=== PATIENT | female | born 1985 | race Caucasian/White ===

== ENCOUNTER 2020-12-14 12:58 | Outpatient (CLI) | payer BC | END 2020-12-14 23:59 | disposition home or self-care (01) | LOC: LAB.WCP 12:58 | PROVIDERS: ATTEND Obstetrics & Gynecology | DX: H34.8122 Central retinal vein occlusion, left eye, stable (principal); Z31.69 Encounter for other general counseling and advice on procreation | CPT/HCPCS: 36415; 81241; 81599; 85598; 85610; 85613; 85670; 86147 ==

== ENCOUNTER 2021-06-11 12:21 | Outpatient (CLI) | payer OTHER | END 2021-06-11 12:22 | disposition home or self-care (01) | LOC: LAB 12:21 | PROVIDERS: ATTEND Obstetrics & Gynecology | DX: Z31.69 Encounter for other general counseling and advice on procreation (principal) | CPT/HCPCS: 81220; 81329; 81599 ==

== ENCOUNTER 2021-07-18 12:44 | Outpatient (CLI) | payer OTHER | END 2021-07-18 12:45 | disposition home or self-care (01) | LOC: LAB.N 12:44 | PROVIDERS: ATTEND Nurse Practitioner Obstetrics & Gynecology | DX: Z31.41 Encounter for fertility testing (principal) | CPT/HCPCS: 36415; 83001 ==

== ENCOUNTER 2022-10-09 07:18 | Outpatient (CLI) | payer BC | END 2022-10-09 07:19 | disposition home or self-care (01) | LOC: LAB 07:18 | PROVIDERS: ATTEND Obstetrics & Gynecology Reproductive Endocrinology | DX: Z32.01 Encounter for pregnancy test, result positive (principal) | CPT/HCPCS: 36415; 84702 ==

== ENCOUNTER 2022-12-22 09:38 | Outpatient (CLI) | payer BC ==
[2022-12-22 10:23] LABS: THYROID STIMULATING HORMONE 1.12 uIU/mL (0.34-5.60)
== END 2022-12-22 09:39 | disposition home or self-care (01) ==
LOC: LAB 09:38
PROVIDERS: ATTEND Nurse Practitioner Obstetrics & Gynecology
DX: O99.280 Endocrine, nutritional and metabolic diseases complicating pregnancy, unspecified trimester (principal)
CPT/HCPCS: 36415; 84439; 84443

== ENCOUNTER 2023-01-03 06:58 | Outpatient (CLI) | payer BC ==
[2023-01-05 21:07] LABS: AFP MOM 1.42 (.); AFP VALUE 47.1 ng/mL (.); DIA MOM 0.75 (.); DIA VALUE 97.58 pg/mL (.); DSR (BY AGE) 1 IN 140 (.); DSR (SECOND TRIMESTER) 1 IN 3823 (.); GEST. AGE ON COLLECTION DATE 17.1 WEEKS (.); GESTAT. AGE METHOD EDD (.); HCG MOM 0.81 (.); HCG VALUE 25862 mIU/mL (.); INSULIN DEP DIABETES No (.); MATERNAL AGE AT EDD 38.2 yr (.); MULTIPLE GESTATION No (.); OPEN SPINA BIFIDA RISK 1 IN 3404 (.); RACE Caucasian (.); RESULTS Report (.); TEST RESULTS *Screen Negative* (.); TRISOMY 18 RISK Not increased (.); UE3 VALUE 1.41 ng/mL (.); WEIGHT 196 lbs (.)
== END 2023-01-03 06:59 | disposition home or self-care (01) ==
LOC: LAB 06:58
PROVIDERS: ATTEND Nurse Practitioner Obstetrics & Gynecology
DX: Z13.79 Encounter for other screening for genetic and chromosomal anomalies (principal)
CPT/HCPCS: 36415; 81511

== ENCOUNTER 2023-01-23 15:38 | Outpatient (CLI) | payer BC ==
--- NOTE | 2023-01-24 11:50 | Ultrasound Report ---
PROCEDURE: OB Detailed Eval INDICATIONS: SUPERVISION OF IVF OUTSIDE/PRIOR DATING DATA: IVF on: 09/24/2022. IVF-based estimated date of delivery (NICK): 06/12/2023. The below data below was generated using the clinical NICK of 06/12/2023 TECHNIQUE: Real-time scanning was performed of the fetus, with image documentation and biometric measurements. Endovaginal scanning: Not performed COMPARISON: None. FINDINGS: General: A single living intrauterine gestation is present. Presentation: Variable Placenta: Placental position is posterior, without previa. Amniotic fluid index: 12.1 cm, within normal limits for gestational age. heart rate: 132 beats per minute. Maternal cervical canal: 4.7 cm long; normal length is 2.5 cm or more. biometrics: Biparietal diameter: 4.8 cm, 20 weeks 4 days, 73rd percentile. Head circumference: 17.9 cm, 20 weeks 3 days, 59th percentile. Abdominal circumference: 15.2 cm, 20 weeks 3 days, 50th percentile. Femur length: 3.08 cm, 19 weeks 0 days, 26 percentile. Estimated gestational age from initial scan: 20 weeks 0 days Composite gestational age from present scan: 20 weeks 2 days Estimated weight and percentile: 329.5 g, 49th percentile. Measurement variability in biometric dating: +/- 10 days from 12-20 weeks gestation, +/- 2 weeks from 20-30 weeks gestation, +/- 3 weeks at 30 weeks gestation or later. Anatomic survey: Neuro: Ventricles are normal at less than 10 mm. Cisterna magna is normal at 3-11 mm. Cerebellum i s normal in size and morphology. Nuchal skin fold: Normal at less than 6 mm between 14 and 20 weeks gestational age. Face: Nose and lips, facial profile are normal. Spine: No evidence for spina bifida. Heart: 4-chambered heart is present, with normal ventricular outflow tracts. Diaphragm: Diaphragm is intact. Stomach: Left-sided stomach is present. Kidneys: No hydronephrosis. Normal is less than 5 mm in 2nd trimester, less than 7 mm in 3rd trimester. Cord: 3 vessel cord has marginal insertion. Bladder: Normal in size. Extremities: All 4 extremities are visualized. IMPRESSION: Single living intrauterine at 20 weeks 2 days, NICK of 06/12/2023. Marginal cord insertion. Otherwise, anatomy survey is within normal limits. Estimated weight of 329.5 g, 49th percentile. Reviewed by: Bryan Lala on 01/24/2023 11:49 AM PST Approved by: Bryan Lala on 01/24/2023 11:49 AM PST Station ID: [id number]
== END 2023-01-23 15:39 | disposition home or self-care (01) ==
LOC: DI 15:38
PROVIDERS: ATTEND Nurse Practitioner Obstetrics & Gynecology
DX: O09.512 Supervision of elderly primigravida, second trimester (principal); O09.812 Supervision of pregnancy resulting from assisted reproductive technology, second trimester; Z3A.20 20 weeks gestation of pregnancy

== ENCOUNTER 2023-02-10 11:28 | Outpatient (CLI) | payer BC ==
[2023-02-10 12:14] LABS: THYROID STIMULATING HORMONE 1.33 uIU/mL (0.34-5.60)
== END 2023-02-10 11:29 | disposition home or self-care (01) ==
LOC: LAB 11:28
PROVIDERS: ATTEND Nurse Practitioner Obstetrics & Gynecology
DX: O99.280 Endocrine, nutritional and metabolic diseases complicating pregnancy, unspecified trimester (principal)
CPT/HCPCS: 36415; 84439; 84443

== ENCOUNTER 2023-03-07 09:17 | Outpatient (CLI) | payer BC ==
[2023-03-07 10:26] LABS: HCT - HEMATOCRIT 31.4 % (37.0-47.0); HGB - HEMOGLOBIN 10.6 g/dL (12.0-16.0); MEAN CORPUSCULAR HGB CONC 33.8 g/dL (32.0-36.0); MEAN CORPUSCULAR VOLUME 94.9 fL (81.0-99.0); RED BLOOD COUNT 3.31 10^6/uL (4.20-5.40)
== END 2023-03-07 09:18 | disposition home or self-care (01) ==
LOC: LAB 09:17
PROVIDERS: ATTEND Nurse Practitioner Obstetrics & Gynecology
DX: Z36.9 Encounter for antenatal screening, unspecified (principal)
CPT/HCPCS: 36415; 82950; 85027

== ENCOUNTER 2023-04-17 11:59 | Outpatient (CLI) | payer BC ==
[2023-04-17 12:41] LABS: THYROID STIMULATING HORMONE 1.26 uIU/mL (0.34-5.60)
== END 2023-04-17 12:00 | disposition home or self-care (01) ==
LOC: LAB 11:59
PROVIDERS: ATTEND Nurse Practitioner Obstetrics & Gynecology
DX: O99.280 Endocrine, nutritional and metabolic diseases complicating pregnancy, unspecified trimester (principal)
CPT/HCPCS: 36415; 84439; 84443

== ENCOUNTER 2023-04-19 17:14 | Outpatient (CLI) | payer BC ==
--- NOTE | 2023-04-20 08:56 | Ultrasound Report ---
PROCEDURE: OB Follow up INDICATIONS: MARGINAL CORD INSERTION OUTSIDE/PRIOR DATING DATA: Last menstrual period (LMP): 09/24/2022. LMP-based estimated date of delivery (NICK): 06/12/2023. First dating scan (date and location): 10/19/2022 outside clinic. Estimated date of delivery (NICK) from first dating scan: 06/11/2023. The below data below was generated using the working NICK of 06/12/2023 TECHNIQUE: Real-time scanning was performed of the fetus, with image documentation and biometric measurements. Endovaginal scanning: Not performed. COMPARISON: 01/23/2023 FINDINGS: General: A single living intrauterine gestation is present. Presentation: Vertex Placenta: Placental position is posterior, without previa. Amniotic fluid index: 18.5 cm, within normal limits for gestational age. heart rate: 133 beats per minute. Maternal cervical canal: 4.11 cm long; normal length is 2.5 cm or more. biometrics: Biparietal diameter: 8.57 cm, 34 weeks, 4 days, 94.1% Head circumference: 31.71 cm, 35 weeks, 5 days, 91.9% Abdominal circumference: 28.19 cm, 32 weeks, 2 days, 47.4% Femur length: 6.1 cm, 31 weeks, 5 days, 22.8% Estimated gestational age from initial scan: 32 weeks, 2 days Composite gestational age from present scan: 33 weeks, 4 days Estimated weight and percentile: 2011.2 g, 49.9% Measurement variability in biometric dating: +/- 10 days from 12-20 weeks gestation, +/- 2 weeks from 20-30 weeks gestation, +/- 3 weeks at 30 weeks gestation or more. Other: Marginal placental cord insertion approximately 1.7 cm from inferior and placenta is seen. Non specific vascular flow is noted near the inferior tip of placenta unable to be clearly defined due to position. IMPRESSION: 1. Single live intrauterine gestation with fetus in vertex presentation. heart rate is 133 bpm. Normal amount of amniotic fluid. Estimated weight is at 49.9%. 2. Marginal placental cord insertion as above. Nonspecific vascular flow noted near the inferior tip of placenta and is of indeterminant significance. Reviewed by: Girma De Guzman MD on 04/20/2023 8:54 AM PST Approved by: Girma De Guzman MD on 04/20/2023 8:54 AM [facility] Station ID: [id number]
== END 2023-04-19 17:15 | disposition home or self-care (01) ==
LOC: DI 17:14
PROVIDERS: ATTEND Nurse Practitioner Obstetrics & Gynecology
DX: O09.513 Supervision of elderly primigravida, third trimester (principal); O09.813 Supervision of pregnancy resulting from assisted reproductive technology, third trimester; O43.193 Other malformation of placenta, third trimester; Z3A.33 33 weeks gestation of pregnancy

== ENCOUNTER 2023-06-05 15:50 | Outpatient (CLI) | payer BC ==
[2023-06-05] MEDS: miSOPROStoL 100 MCG TABLET BC SCH (16:35)
[2023-06-05 17:54] LABS: BASOPHILS % (AUTO) 0.3 %; EOSINOPHILS # (AUTO) 0.1 10^3/uL (0.0-0.7); EOSINOPHILS % (AUTO) 0.7 %; HCT - HEMATOCRIT 30.8 % (37.0-47.0); HGB - HEMOGLOBIN 10.6 g/dL (12.0-16.0); LYMPHOCYTES # (AUTO) 1.9 10^3/uL (1.5-3.5); MEAN CORPUSCULAR HEMOGLOBIN 32.2 pg (27.0-31.0); MEAN CORPUSCULAR HGB CONC 34.4 g/dL (32.0-36.0); MEAN CORPUSCULAR VOLUME 93.6 fL (81.0-99.0); MEAN PLATELET VOLUME 10.9 fL (7.9-10.8); MONOCYTES # (AUTO) 0.4 10^3/uL (0.0-1.0); MONOCYTES % (AUTO) 5.5 %; NEUTROPHILS # (AUTO) 4.4 10^3/uL (1.5-6.6); NEUTROPHILS % (AUTO) 64.9 %; PLT - PLATELET COUNT 195 10^3/uL (130-450); RED BLOOD COUNT 3.29 10^6/uL (4.20-5.40); RED CELL DISTRIBUTION WIDTH 13.1 % (12.0-15.0); WHITE BLOOD COUNT 6.8 x10^3/uL (4.8-10.8)
[2023-06-05 23:25] VITALS: BP 115/74
--- NOTE | 2023-06-06 09:16 | PROVIDER PROGRESS NOTE ---
- HPI Chief Complaint: Other Current : Vital Signs Temperature 36.7 C 06/05/23 19:30 Heart Rate 77 06/05/23 19:30 Respiratory Rate 20 06/05/23 19:30 Blood Pressure 115/74 06/05/23 19:30 Temperature 36.7 C 06/05/23 19:30 Heart Rate 77 06/05/23 19:30 Respiratory Rate 20 06/05/23 19:30 Blood Pressure 115/74 06/05/23 19:30 O2 Saturation If not protocol: Oxygen Flow, liters/minute - Plan Plan: Nalini is a 38yo @ 39.1wks gestation by IVF transfer date who presents to [facility] for outpatient cervical ripening in anticipation for medical induction of labor tomorrow morning secondary to IVF and advanced maternal age. She denies vaginal bleeding, leakage of fluid or contractions. She reports +FM. IV inserted. CBC collected. SVE 04/17/-3, posterior, medium. vertex. Intact membranes 25mcg BC misoprostol x once administered. Shetty cervical ripening balloon inserted and inflated to 60cc intrauterine and 60cc vaginal balloon. Pt tolerated insertion well. Extended EFM Category I with heart rate 140s, moderate variability, + accels, no decels. Contractions palpate mild intermittently with soft resting tone. Pt released home with precautions following 4 hours of EFM after misoprostol dosage. Pt has emergency contact information. Plan to return at 0800 tomorrow or sooner PRN. Pt verbalized understanding and agrees to above plan. She denies further questions or concerns at this time.
== END 2023-06-05 20:05 | disposition home or self-care (01) ==
LOC: WFO 15:50 → FBP 15:51 → WFO 20:05
PROVIDERS: ATTEND Nurse Practitioner Obstetrics & Gynecology
DX: O09.813 Supervision of pregnancy resulting from assisted reproductive technology, third trimester (principal); Z3A.39 39 weeks gestation of pregnancy
CPT/HCPCS: 59200; 85025; A9270

== ENCOUNTER 2023-06-06 07:55 | Inpatient (IN) | payer BC ==
[2023-06-06] MEDS ORDERED: lidocaine 1% 20 ML MDV ID PRN (08:28)
[2023-06-06] MEDS ORDERED: miSOPROStoL 200 MCG TABLET BC PRN (08:28)
[2023-06-06] MEDS ORDERED: TRANEXAMIC ACID IN NACL 1,000 MG/100 ML BAG IV PRN (08:28)
[2023-06-06] MEDS ORDERED: OXYTOCIN 10 UNIT/ML VIAL IM PRN (08:28)
[2023-06-06] MEDS ORDERED: SODIUM CHLORIDE FLUSH 0.9% 10 ML SYRINGE IVP PRN (08:28)
[2023-06-06] MEDS ORDERED: METHYLERGONOVINE 0.2 MG/ML VIAL IM PRN (08:28)
[2023-06-06] MEDS ORDERED: CARBOPROST TROMETHAMINE 250 MCG/ML VIAL IM PRN (08:28)
[2023-06-06] MEDS ORDERED: OXYTOCIN/SODIUM CHLORIDE 500 ML IV PRN (08:28)
--- NOTE | 2023-06-06 08:32 | HISTORY & PHYSICAL EXAMINATION ---
Admit History - Visit Reason Visit Reason: Other - : 1 Parity: 0 Premature: 0 Ectopic: 0 : 1 Care: positive: [facility] Risk/History: positive: None Complications This : positive: Other Smoking Status: Never smoker - Mother's Labs Mother's Blood Type: positive: A Mother's RH: positive: Positive GBS: positive: Group B Strep Positive Rubella Status: positive: Immune - HPI Diagnosis/Indication for NST: Other - NST Procedure FHR baseline 140s, moderate variability, + accels, no decels Contractions palpate mild occasionally with soft resting tone Meds/Allgy - Allergies Allergies/Adverse Reactions: Allergies Allergy/AdvReac Type Severity Reaction Status Date / Time No Known Drug Allergies Allergy Verified 06/06/23 08:32 Review of Systems - Constitutional Constitutional: denies: Fatigue, Fever, Chills - Eyes Eyes: denies: Blurred vision, Spots in vision, Dipolpia - Cardiovascular Cariovascular: denies: Chest pain, Edema - Respiratory Respiratory: denies: Cough, Wheezing, SOB at rest - Gastrointestinal Gastrointestinal: denies: Constipation, Diarrhea, Nausea, Vomiting - Genitourinary Genitourinary: denies: Dysuria, Frequency, Flank pain - Integumentary Integumentary: denies: Rash, Pruritis - Neurological Neurological: denies: Headache - Psychiatric Psychiatric: denies: Depression, Anxiety - Hematologic/Lymphatic Hematologic/Lymphatic: denies: Anemia, Bruising - All Other Systems All Other Systems: reports: Reviewed and negative Physical - Abdominal Exam Contraction Frequency (min/apart): occasional Contraction Intensity: positive: Mild Uterine Resting Tone: positive: Soft - Monitoring Heart Rate Baseline: 140 Strip Review: positive: Category I - Presentation Presentation: positive: Vertex - Vaginal Exam Membranes: positive: Membranes intact Dilation (in cm): 3 Effacement (%): 50 Station: positive: -3 Cervical Position: positive: Posterior - Speculum Exam Speculum Exam Performed: positive: No Plan for Labor - Plan For Labor I expect patient to be DC'd or transferred within 96 hours.: Yes Plan for Labor: Nalini is a 38yo @ 38yo @ 39.1wks gestation who presents today to [facility] for medical induction of labor secondary to IVF and advanced maternal age. She had a cervical ripening balloon and 25mcg BC misoprostol administered yesterday outpatient. She reports she was able to get some sleep last night but overall has felt rather uncomfortable. Upon arrival cervical ripening balloon was removed and SVE revealed cervix was 3/50/-3, posterior, soft and vertex with intact membranes. FHR baseline 140s, moderate variability, + accels, no decels. Contractions palpate mild occasionally with soft resting tone. [facility] the duration of her which has remained uncomplicated with the exception of advanced maternal age and IVF . testing was initiated at 36 weeks gestation and has remained reassuring. She did also start levothyroxine 25mcg prior to IVF transfer date and her thyroid levels have been monitored and have remained within normal limits through the duration of her . She is noted to be GBS positive and will receive GBS prophylaxis per protocol with SROM or active labor. She is supported by her Tremayne today. Dating criteria: LMP: 09/08/2022 IVF transfer date NICK: 06/12/2023 Serial exams: - agree supervisor lump room History: Term NSVB x 0. SAB x 1. Last pap 2021 ASCUS, neg HPV. She had a colposcopy in 2021 which was WNL. She will need a repeat pap . Denies history of gonorrhea, chlamydia, genital herpes, oral herpes or any other STI. Sexual partner does NOT have HSV (oral or genital). Medical Hx: Infertility Surgical Hx: none Social Hx: Monogamous with male partner. Stopped drinking alcohol due to . Denies current use of tobacco, marijuana or other recreational drugs. Reports that she is safe in current relationship. 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 Family Hx: Denies family history of congenital anomalies, Cystic Fibrosis or chromosomal abnormalities. Allergies: NKDA Medications: PNV, Levothyroxine 25mcg once daily, FeSO4 bid course: A positive, antibody negative Rubella immune, varicella immune HIV non-reactive, RPR non-reactive Hep B neg, Hep C neg Genetic screening - neg Carrier screening - negative CF, SMA, Fragile X FAS WNL. Posterior placenta, no previa. Size c/w dating (EFW 49%tile). LETICIA WNL. 3VC with marginal cord insertion. Glucola 100 Tdap 03/23/2023 Influenza 12/15/2022 COVID vaccine x 4 Growth and LETICIA ultrasound at 32wks secondary to marginal cord insertion WNL. EFW 49.9%tile. GBS POSITIVE Physical exam: Normocephalic, atraumatic Heart RRR w/o M/G/R Lungs CTAB Abdomen gravid, soft, nontender EFW 3500g FHR baseline 140s, moderate variability, + accels, no decels Contractions palpate mild occasionally with soft resting tone SVE 3/50/-3, posterior, soft. Vertex. Intact membranes. Bilateral LE's trace edema. Mood is good. Assessment: 38yo @ 39.1wks gestation by IVF transfer date IVF Advanced maternal age FHR Category I GBS positive Plan: 50mcg BC misoprosotol q 4 hrs for pre-induction cervical ripening. Continuous monitoring. Initiate Ampicillin for GBS prophylaxis per protocol with SROM or active labor. Jaccuzi PRN. Nitrous oxide PRN. Epidural per maternal request. Anticipate .
[2023-06-06] MEDS ORDERED: LEVOTHYROXINE 25 MCG TABLET PO SCH (09:00)
[2023-06-06] MEDS: miSOPROStoL 100 MCG TABLET BC SCH (09:01)
--- NOTE | 2023-06-06 09:12 | PROVIDER PROGRESS NOTE ---
- HPI Chief Complaint: Other Current : Current EDU 06/12/23 Gestation 39 Weeks and 1 Days 2 Vital Signs Temperature 36.7 C 06/06/23 08:39 Heart Rate 65 06/06/23 08:39 Respiratory Rate 16 06/06/23 08:39 Blood Pressure 128/75 06/06/23 08:39 Temperature 36.7 C 06/06/23 08:39 Heart Rate 65 06/06/23 08:39 Respiratory Rate 16 06/06/23 08:39 Blood Pressure 128/75 06/06/23 08:39 O2 Saturation If not protocol: Oxygen Flow, liters/minute - Exam Nalini is a 38yo @ 39.1wks gestation by IVF transfer date who presents to [facility] for outpatient cervical ripening in anticipation for medical induction of labor tomorrow morning secondary to IVF and advanced maternal age. She denies vaginal bleeding, leakage of fluid or contractions. She reports +FM. IV inserted. CBC collected. SVE 04/17/-3, posterior, medium. vertex. Intact membranes 25mcg BC misoprostol x once administered. Shetty cervical ripening balloon inserted and inflated to 60cc intrauterine and 60cc vaginal balloon. Pt tolerated insertion well. Extended EFM Category I with heart rate 140s, moderate variability, + accels, no decels. Contractions palpate mild intermittently with soft resting tone. Pt released home with precautions following 4 hours of EFM after misoprostol dosage. Pt has emergency contact information. Plan to return at 0800 tomorrow or sooner PRN. Pt verbalized understanding and agrees to above plan. She denies further questions or concerns at this time.
[2023-06-06] MEDS: SODIUM CHLORIDE FLUSH 0.9% 10 ML SYRINGE IVP SCH (09:50)
--- NOTE | 2023-06-06 16:07 | PHARMACY PROGRESS NOTE ---
- Best Possible Medication History Admit Date and Time: 06/06/23 0828 Processed by: Pharmacy Medications reviewed in ED?: No Medication History completed: Yes Patient Interview: Completed Secondary Source(s): Physician records, Insurance records As the person ultimately responsible for medication therapy, providers are able to order a medication from an existing home medication list in [facility] via the "Reconcile Routine" prior to Confirmation of that medication by support director. Such practice is discouraged except when the physician, in their clinical judgment, deems that a medical need exists for a medication without regard to previous use.
[2023-06-06] MEDS: LACTATED RINGERS 1,000 ML IV SCH (16:12)
[2023-06-06] MEDS ORDERED: AMPICILLIN 2 GM in SODIUM CHLORIDE 0.9% MINIBAG 100 ML IV ONE (17:45)
[2023-06-06] MEDS: OXYTOCIN/SODIUM CHLORIDE 500 ML IV SCH (17:50)
--- NOTE | 2023-06-06 17:50 | PROVIDER PROGRESS NOTE ---
Labor Progress Note - Uterine Monitoring Uterine Monitoring Mode: positive: External toco Contraction Frequency (min/apart): 2-5 Contraction Intensity: positive: Mild Uterine Resting Tone: positive: Soft - Monitoring Monitor Mode: positive: External ultrasound Heart Rate Baseline: 140 Heart Rate Variability: positive: Moderate (6-25 bmp) Accelerations: positive: Present, 15x15 Decelerations: positive: None Strip Review: positive: Category I - Vaginal Exam Dilation (in cm): 4-5 Effacement (%): 100 Station: -3 Cervical Position: Posterior - Labor Progress Note Labor Progress Note/Additional Text: S: Feeling some cramping with contractions but felt the contractions she was experiencing with the cervical ripening balloon in place were more uncomfortable. She was able to get a little rest today. Her Tremayne remains supportive at the bedside. She is supportive of moving labor progress forward. O: FHR baseline 140s, moderate variability, + accels, no decels are present. Previously had variable decelerations which resolved with position change and IV fluid bolus. Overal FHR has remained reassuring Contractions palpate mild every 2-4 minutes with soft resting tone SVE 4-5/100/-3, soft, posterior. Vertex. Membranes intact. A: 38yo @ 39.1wks gestation by IVF transfer date IVF Advanced maternal age GBS positive FHR Category I P: Initiate pitocin for induction of labor with titration per protocol. Initiate ampicillin for GBS prophylaxis per protocol. Continuous monitoring. Jacuzzi PRN. Nitrous oxide PRN. Epidural per maternal request. Anticipate .
[2023-06-06] MEDS: AMPICILLIN 2 GM in SODIUM CHLORIDE 0.9% MINIBAG 100 ML IV ONE (17:54)
[2023-06-06] MEDS: LEVOTHYROXINE 25 MCG TABLET PO SCH (20:05)
[2023-06-06] MEDS ORDERED: LIDOCAINE 2%-EPI 1:100000 20 ML MDV ONE (20:54)
[2023-06-06] MEDS ORDERED: ROPIVACAINE 0.2% 200 MG/100 ML BAG EP ONE (20:54)
[2023-06-06] MEDS: ONDANSETRON 4 MG/2 ML VIAL IVP PRN (21:06)
--- NOTE | 2023-06-06 21:36 | ANESTHESIA ---
Pre-Anesthesia VS, & Labs - Diagnosis Active labor - Procedure Active labor Vital Signs: Temp Pulse Resp BP Pulse Ox O2 Flow Rate 36.7 C 65 16 128/75 06/06/23 08:39 06/06/23 08:39 06/06/23 08:39 06/06/23 08:39 Height: 5 ft 5 in Weight (kg): 97.522 kg Body Mass Index: 35.7 BMI Classification: Obese - NPO Last Fluid Intake: clear liquids - Is Patient ?: Yes - Lab Results Current Lab Results: Laboratory Tests 06/06/23 08:40: Blood Type A POSITIVE, Antibody Screen NEGATIVE 06/05/23 16:30: Blood Type Recheck A POSITIVE Lab results reviewed: Yes Home Medications and Allergies Home Medications: Ambulatory Orders Ferrous Sulfate [Feosol] 325 mg PO BID 06/06/23 Levothyroxine [Synthroid] 25 mcg PO DAILY 06/06/23 Pnv No.95/Ferrous Fum/Folic AC [ Tablet] 1 tab PO DAILY 06/06/23 Active Medications Carboprost Tromethamine (Carboprost Tromethamine 250 Mcg/Ml Vial) 250 mcg IM Q15M PRN PRN Reason: Step 4: Hemorrhage protocol Oxytocin/Sodium Chloride (Pitocin/Sodium Chloride) 500 mls @ 999 mls/hr IV PRN PRN; Protocol PRN Reason: POST- HEMORR PREVENTION Stop: 06/11/23 08:29 Tranexamic Acid (Tranexamic 1,000 Mg/100ml-Nacl) 1,000 mg in 100 mls @ 600 mls/hr IV .ONCE PRN PRN Reason: EBL >1200mL and within 3hr Stop: 06/11/23 08:29 Ampicillin Sodium 1 gm/ Sodium (Chloride) 100 mls @ 200 mls/hr IV Q4H [facility] Lactated Ringer's (Lr) 1,000 mls @ 100 mls/hr IV .Q10H [facility] Last Admin: 06/06/23 19:08 Dose: 100 mls/hr Oxytocin/Sodium Chloride (Pitocin/Sodium Chloride) 500 mls @ 2 mls/hr IV TITR [facility]; Protocol Last Titration: 06/06/23 20:00 Dose: 4 milliunit/min, 4 mls/hr Levothyroxine Sodium (Levothyroxine 25 Mcg Tablet) 25 mcg PO HS [facility] Last Admin: 06/06/23 20:05 Dose: 25 mcg Lidocaine HCl (Lidocaine 1% 20 Ml Mdv) 20 ml ID .ONCE PRN PRN Reason: PERINEAL REPAIR Stop: 06/11/23 08:29 Methylergonovine Maleate (Methylergonovine 0.2 Mg/Ml Vial) 0.2 mg IM .ONCE PRN PRN Reason: Step 2: Hemorrhage protocol Stop: 06/11/23 08:29 Misoprostol (Misoprostol 200 Mcg Tablet) 800 mcg BC .ONCE PRN PRN Reason: Step 3: Hemorrhage protocol Stop: 06/11/23 08:29 Misoprostol (Misoprostol 100 Mcg Tablet) 50 mcg BC Q4H [facility] Last Admin: 06/06/23 13:07 Dose: 50 mcg Ondansetron HCl (Ondansetron 4 Mg/2 Ml Vial) 4 mg IVP Q4HR PRN PRN Reason: Nausea / Vomiting Last Admin: 06/06/23 21:06 Dose: 4 mg Oxytocin (Oxytocin 10 Unit/Ml Vial) 10 unit IM .ONCE PRN PRN Reason: Step one: If no IV access Stop: 06/11/23 08:29 Sodium Chloride (Sodium Chloride Flush 0.9% 10 Ml Syringe) 10 ml IVP 0100,0900,1700 [facility] Last Admin: 06/06/23 21:06 Dose: 10 ml Sodium Chloride (Sodium Chloride Flush 0.9% 10 Ml Syringe) 10 ml IVP PRN PRN PRN Reason: NEEDED PER PROVIDER ORDERS Ferrous Sulfate [Feosol] 325 mg PO BID 06/06/23 Levothyroxine [Synthroid] 25 mcg PO DAILY 06/06/23 Pnv No.95/Ferrous Fum/Folic AC [ Tablet] 1 tab PO DAILY 06/06/23 Allergies/Adverse Reactions: Allergies Allergy/AdvReac Type Severity Reaction Status Date / Time No Known Drug Allergies Allergy Verified 06/06/23 08:32 Anes History & Medical History - Anesthetic History Anesthesia Complications: reports: No previous complications - Medical History Cardiovascular: reports: None Pulmonary: reports: None Gastrointestinal: reports: None Urinary: reports: None Neuro: reports: None Musculoskeletal: reports: None Endocrine/Autoimmune: reports: HyPOthyroidism (during ) Blood Disorders: reports: None Skin: reports: None Smoking Status: Never smoker Psychosocial: reports: No issues indicated History of Cancer?: No - Surgical History Other Past Surgical History: IVF - Obstetrical History : 1 Parity: 0 Events: reports: None Complications: reports: Other (AMA, IVF ) Exam General: Alert, Oriented x3, Cooperative, No acute distress Dental: WNL Mouth Openin Fingerbreadth Neck Mobility: Normal Mallampati classification: II Thyromental Distance: 4-6 cm Mental/Cognitive Status: Alert/Oriented X3, Normal for patient Plan Anesthesia Type: Epidural Consent for Procedure(s) Verified and Reviewed: Yes Code Status: Attempt Resuscitation ASA classification: 2-Mild systemic disease Is this case an emergency?: No
[2023-06-06] MEDS ORDERED: NALOXONE 0.4 MG/ML VIAL IVP PRN (21:37)
[2023-06-06] MEDS: ePHEDrine 50 MG/ML VIAL IVP PRN (22:28)
[2023-06-06] MEDS: AMPICILLIN 1 GM in SODIUM CHLORIDE 0.9% MINIBAG 100 ML IV SCH (23:02)
[2023-06-06] MEDS ORDERED: ePHEDrine 50 MG/ML VIAL IVP PRN (23:37)
[2023-06-07] MEDS ORDERED: ROPIVACAINE 0.2% PF 20 ML AMPULE ONE ×2 (04:53→09:11)
[2023-06-07] MEDS ORDERED: SODIUM CHLORIDE 0.9% 10 ML VIAL IVP ONE ×4 (05:02→18:21)
[2023-06-07] MEDS: ROPIVACAINE 0.2% 200 MG/100 ML BAG EP PRN (06:07)
[2023-06-07] MEDS ORDERED: LIDOCAINE-PF 2% 10 ML AMP SUBQ ONE ×3 (06:12→14:05)
[2023-06-07] MEDS ORDERED: fentaNYL 100 MCG/2 ML VIAL ONE (06:12)
[2023-06-07] MEDS ORDERED: diphenhydrAMINE INJ 50 MG/ML VIAL ONE (08:37)
[2023-06-07] MEDS: diphenhydrAMINE INJ 50 MG/ML VIAL IVP PRN ×2 (08:46→23:26)
[2023-06-07] MEDS ORDERED: LIDOCAINE-MPF 2% 5 ML VIAL ONE ×3 (09:24→18:21)
--- NOTE | 2023-06-07 09:45 | PROVIDER PROGRESS NOTE ---
Labor Progress Note - Uterine Monitoring Uterine Monitoring Mode: positive: External toco Contraction Frequency (min/apart): 2-3 Contraction Intensity: positive: Strong Uterine Resting Tone: positive: Soft - Monitoring Monitor Mode: positive: External ultrasound Heart Rate Baseline: 145 Heart Rate Variability: positive: Moderate (6-25 bmp) Accelerations: positive: Present, 15x15 Decelerations: positive: Variable, Intermittent (<50% x20 min) Strip Review: positive: Category II - Vaginal Exam Dilation (in cm): 5-6 Station: 0 - Labor Progress Note Labor Progress Note/Additional Text: S: Upon my arrival to the unit pt is crying in pain and frustration secondary to her epidural not being effective. She has struggled with pain control all night and anesthesia has been at the bedside on multiple occasions to bolus her epidural. She has intermittently been able to get comfortable but the comfort is usually brief. Anesthesia has been called to present to the bedside to evaluate again. Her Tremayne remains supportive at the bedside. O: FHR baseline 140s, moderate variability, + accels, 1 variable deceleration. Overall reassuring. Contractions palpate strong every 2-3 minutes with soft resting tone SVE deferred at this time. Last SVE at 0820 was 5-6/ and edema noted. 25mg IV benadryl administered Pitocin @ 13mU/mL A: 38yo @ 39.2wks gestation by IVF transfer date Active labor IVF GBS positive FHR Category II at present - overall reassuring has has remained category II overall P: Continue pitocin for induction of labor with titration per protocol. Continue ampicillin for GBS prophylaxis per protocol. Maintain epidural for pain management. Continuous monitoring. Rotate in bed on peanut ball while also promoting rest. Repeat SVE in 2 hours and consider IUPC if no cervical change at that time. Anticipate .
--- NOTE | 2023-06-07 10:16 | PROVIDER PROGRESS NOTE ---
Labor Progress Note - Uterine Monitoring Uterine Monitoring Mode: positive: External toco Contraction Frequency (min/apart): 3-5 Contraction Intensity: positive: Moderate Uterine Resting Tone: positive: Soft - Monitoring Monitor Mode: positive: External ultrasound Heart Rate Baseline: 140 Heart Rate Variability: positive: Moderate (6-25 bmp) Accelerations: positive: Present, 15x15 Decelerations: positive: None Strip Review: positive: Category I - Vaginal Exam Dilation (in cm): 4-5 Effacement (%): 100 Station: -2 Cervical Position: Posterior - Labor Progress Note Labor Progress Note/Additional Text: S: Feeling more discomfort with contractions but continues to feel the contract ions she was experiencing with the cervical ripening balloon in place were more uncomfortable. She is currently sitting on the labor ball at the bedside. In agreement with releasing her bag of water. She feels like she is getting close to desring an epidural for pain management. Tremayne is supportive at the bedside. O: FHR baseline 140s, moderate variability, + accels, no decels are present. Contractions palpate moderate every 3-4 minutes with soft resting tone SVE 4-5/100/-2, soft, posterior. Vertex. AROM at 2042 was noted to be a moderate amount of clear fluid. A: 38yo @ 39.1wks gestation by IVF transfer date IVF Advanced maternal age GBS positive FHR Category I P: Anesthesia notified for placement of epidural per maternal request. Continue pitocin for induction of labor with titration per protocol. Continue ampicillin for GBS prophylaxis per protocol. Continuous monitoring. Jacuzzi PRN. Nitrous oxide PRN. Epidural per maternal request. Anticipate .
--- NOTE | 2023-06-07 10:20 | PROVIDER PROGRESS NOTE ---
Labor Progress Note - Uterine Monitoring Uterine Monitoring Mode: positive: External toco Contraction Frequency (min/apart): 2-4 Contraction Intensity: positive: Moderate Uterine Resting Tone: positive: Soft - Monitoring Monitor Mode: positive: External ultrasound Heart Rate Baseline: 150 - Vaginal Exam Dilation (in cm): 4-5 Effacement (%): 100 Station: -2 Cervical Position: Posterior - Labor Progress Note Labor Progress Note/Additional Text: I was phones by RN to review strip secondary to abnormal heart rate pattern following epidural bolus from pump and subsequent hypotention that resulted in heart rate pattern that appears tachycardic and abnormal pattern. Immediately prior to hypotensive episode the FHR pattern was category I with + accels. Consult with public relations consultant physician who visualized heart rate tracing and agrees that it looks overall reassuring. heart rate pattern improves and becomes more regular. No longer concerned at this time.
[2023-06-07] MEDS: ACETAMINOPHEN 1,000 MG/100 ML 1,000 MG/100 ML BAG IV ONE ×2 (11:55→18:13)
[2023-06-07] MEDS ORDERED: BUPIVACAINE 0.25% PF 10 ML VIAL ONE (20:27)
[2023-06-08] MEDS: ACETAMINOPHEN 1,000 MG/100 ML 1,000 MG/100 ML BAG IV PRN (00:43)
[2023-06-08] MEDS: CALCIUM CARBONATE CHEW 500 MG TABLET PO SCH (01:32)
--- NOTE | 2023-06-08 01:34 | PROVIDER PROGRESS NOTE ---
Labor Progress Note - Uterine Monitoring Uterine Monitoring Mode: positive: IUPC Contraction Frequency (min/apart): 6-8 Contraction Intensity: positive: Moderate to strong Uterine Resting Tone: positive: Soft - Monitoring Monitor Mode: positive: External ultrasound Heart Rate Baseline: 150 Heart Rate Variability: positive: Moderate (6-25 bmp) Accelerations: positive: Present, 15x15 Decelerations: positive: None Strip Review: positive: Category I - Vaginal Exam Dilation (in cm): 8 Effacement (%): 100 Station: 0 - Labor Progress Note Labor Progress Note/Additional Text: S: Patient is comfortable with her epidural in place. She has continued to require intermittent boluses from anesthesia and continues to experience lower back/flank pain that is intermittently relieved by tylenol. She has been rotating in bed on peanut ball. Her and sister are supportive at the bedside. O: FHR 150s, moderate variability, + accels, no decels Contractions palpate strong every 6-8 minutes. Patient did have IUPC in place and it was spontaneously expelled and replaced now. Contractions did not reach an adequate MVU rate. SVE 8/100/0 and vertex. Persistent cervical edema noted AROM x 29hrs A: 38yo @ 39.3wks gestation by IVF transfer date Active labor Slow progression of labor Prolonged rupture of membranes IVF Advanced maternal age GBS positive FHR Category I P: Shut off pitocin x 60 minutes and administer TUMS for pitocin break followed by reinitiation of pitocin in 60 minutes with titration per protocol. 50mg benadryl IV in 1.5hrs to decrease cervical inflammation Type and crossmatch x 2 units secondary to increased risk of hemorrhage due to prolonged rupture of membranes and prolonged active phase of labor. Continuous monitoring. Trundelenburg position during benadryl administration. Continue rotation in bed on peanut ball. Maintain epidural for pain management.
--- NOTE | 2023-06-08 01:44 | PROVIDER PROGRESS NOTE ---
Labor Progress Note - Uterine Monitoring Uterine Monitoring Mode: positive: IUPC Contraction Frequency (min/apart): 3-5 Contraction Intensity: positive: Moderate to strong Uterine Resting Tone: positive: Soft - Monitoring Monitor Mode: positive: External ultrasound Heart Rate Baseline: 140 Heart Rate Variability: positive: Moderate (6-25 bmp) Accelerations: positive: Present, 15x15 Decelerations: positive: None Strip Review: positive: Category I - Vaginal Exam Dilation (in cm): 8 Effacement (%): 100 Station: 0 - Labor Progress Note Labor Progress Note/Additional Text: S: Patient currently comfortable with epidural. Anesthesia present at the bedside on multiple occasions in attempt to get her comfortable secondary to persistent flank pain. Tremayne remains supportive at the bedside. O: FHR baseline 140s, moderate variability, + accels, no decels SVE 8/100/0, vertex. AROM x 22hrs IUPC placed A: 38yo @ 39.2wks gestation by IVF transfer date Active labor Prolonged active phase of labor GBS positive FHR Category I IVF Advanced maternal age P: Continuous monitoring. Continue titration of pitocin per protocol for induction of labor. Continue ampicillin for GBS prophylaxis per protocol. Maintain epidural for pain management. Continue tylenol 1000mg q 6hrs PRN lower back pain. Continue benadryl 25mg IV q 2 hrs PRN cervical edema. Encouraged rotation in bed on peanut ball. Anticipate .
[2023-06-08] MEDS: diphenhydrAMINE INJ 50 MG/ML VIAL IVP PRN (02:38)
[2023-06-08] MEDS ORDERED: LIDOCAINE-PF 2% 10 ML AMP SUBQ ONE (05:35)
[2023-06-08] MEDS ORDERED: SODIUM CHLORIDE 0.9% 10 ML VIAL IVP ONE (05:35)
[2023-06-08] MEDS ORDERED: fentaNYL 100 MCG/2 ML VIAL ONE (05:36)
--- NOTE | 2023-06-08 09:53 | PROVIDER PROGRESS NOTE ---
Labor Progress Note - Uterine Monitoring Uterine Monitoring Mode: positive: IUPC Contraction Frequency (min/apart): 2-3 Contraction Intensity: positive: Moderate Uterine Resting Tone: positive: Soft - Monitoring Monitor Mode: positive: External ultrasound Heart Rate Baseline: 150 Heart Rate Variability: positive: Moderate (6-25 bmp) Accelerations: positive: Present, 15x15 Decelerations: positive: None Strip Review: positive: Category I - Vaginal Exam Dilation (in cm): 8 Station: 0 - Labor Progress Note Labor Progress Note/Additional Text: Patient has continued to rotate in bed on peanut ball all night with ability to sleep intermittently. This morning we reviewed my continued concern for increased risk of hemorrhage and infection secondary to prolonged rupture of membranes, prolonged pitocin induction of labor, prolonged active phase of labor, and failure to progress. She desires to proceed with increasing pitocin for induction of labor and titration to adequate contractions despite increased risk associated.
[2023-06-08] MEDS ORDERED: WITCH HAZEL/GLYCERIN 1 PAD TOP PRN (13:30)
[2023-06-08] MEDS ORDERED: HYDROCORTISONE 1% CREAM 28 GM TUBE PR PRN (13:30)
--- NOTE | 2023-06-08 14:06 | DELIVERY NOTE ---
Delivery Note - Labor Labor: positive: Augmented by ARM, Induced by oxytocin - Delivery Method Infant Delivery Method: positive: Spontaneous vaginal delivery - Cervical Ripening Method Cervical Ripening Method: positive: Balloon device, Misoprostil - Presentation Presentation: positive: Vertex - Nuchal Cord Nuchal Cord: positive: Present - Amniotic Fluid Description Amniotic Fluid Description: positive: Clear - Episiotomy Type Episiotomy Type: positive: None - Laceration Laceration: positive: 1st degree, Vaginal - Suture Suture Type: positive: Vicryl Suture Size: positive: 2-0 - Delivery Outcome Delivery Outcome: positive: Livebirth - [place]: positive: Placed in direct skin contact with mother, Suctioned, Bulb syringe, Stimulated, Warmed, [place] used, Warmer used sex: positive: Male - Cord Cord: positive: 3 vessels, Other - Placenta Placenta: positive: Intact, Spontaneous - Estimated Blood Loss Estimated Blood Loss (in cc): 562 (QBL) - Post Delivery Events Post Delivery Events: positive: No post delivery events - Delivery Comments (Free Text/Narrative) Delivery Comments (Free Text/Narrative): Labor: This 38yo @ 39.3wks gestation by LMP c/w IVF transfer date presented on 06/06/2023 for medical induction of labor secondary to IVF and advanced maternal age. She had a cervical ripening balloon placed and 25 mcg BC misoprostol administered followed by 4 hours of electronic monitoring outpatient on 06/05/2023. Upon her arrival for inpatient induction of labor 06/06/2023 her cervix was 3/50/-3, posterior and vertex with intact membranes. She received an additional 2 doses of 50 mcg BC misoprostol for pre- induction cervical ripening followed by initiation of pitocin for induction of labor with titration per protocol. Pitocin was at a maximum infusion rate of 24mU/mL. FHR pattern demonstrated Category I pattern throughout labor. She had occasional periods of Category II but overall FHR pattern remained reassuring through the duration of her labor course. Epidural was placed per maternal request. AROM occurred on 06/06/2023 @ 2043 and was noted to be a moderate amount of clear fluid. IUPC was inserted on 06/07/2023 @ 1830. Pt progressed to anterior lip and pushing on 06/08/2023 @ 1102. She progressed to c/c/+1 @ 1124. at home independent call center agent physician notified of onset of pushing and presence requested on the unit in event of hemorrhage or uterine rupture as patient was at increase risk of adverse event secondary to prolonged rupture of membranes, prolonged active phase of labor, and prolonged pitocin induction of labor. : Normal SVB of viable male infant on 06/08/2023 @ 1153. Tight nuchal cord x 1 was delivered through. The was placed on maternal abdomen, stimulated, dried, and umbilical cord was doubly clamped by CNM and cut by FOB. moved to infant warmer secondary to poor tone and no respiratory effort. at home independent call center agent turkey roll maker present at the bedside for resuscitation (see turkey roll maker note for details). Apgars 2/5/8 at 1, 5, and 10 minutes respectively. Cord blood obtained. 3VC. QBL 562mL. Fundal massage and gentle cord traction applied for active management of the third stage of labor. Placenta delivered spontaneously and intact @ 1222. Fourth stage: Uterine fundus firm and there is no excessive bleeding. The perineum, vagina, and cervix were inspected and found to have 1st degree vaginal laceration which was repaired using a 2-[address]-1 needle in standard fashion and under sterile conditions. Vaginal examination following repair was performed. Tissues well approximated. initiated. Family bonding well. Both mother and baby were left in stable condition.
[2023-06-08] MEDS: ACETAMINOPHEN 500 MG TABLET PO SCH (16:39)
[2023-06-08] MEDS: IBUPROFEN 800 MG TABLET PO SCH (16:39)
[2023-06-08] MEDS: DOCUSATE SODIUM 100 MG CAPSULE PO SCH (21:32)
[2023-06-09 07:56] VITALS: O2SAT 99
--- NOTE | 2023-06-09 12:13 | PROVIDER PROGRESS NOTE ---
Subjective - Subjective Subjective: S: without difficulty. She is bonding well with her baby. Her bleeding is decreased and is light. Her pain is well controlled with oral medications. She was unable to urinate during the night and straight catheterization x 1 yielded 1000mL. She was still unable to urinate and an indwelling catheter was inserted and left in place x 10 hours. It was removed this morning at 0900 and she has not been able to urinate since that time. Her mood is good and her Tremayne remains supportive at the bedside. O: Heart RRR w/o M/G/R, lungs CTAB, abdomen soft and nontender with fundus firm and U-1, perineum intact, light lochia rubra. No edema noted to tissues. Bilateral LEs 1+ pitting edema bilaterally. Mood is good. A: 38yo -->P1 PPD#1 s/p TSVB viable male Urinary retention Perineum intact P: If patient unable to void by 1600, will place indwelling urinary catheter and leave in place x 12 hours with evaluation for discharge home tomorrow. Continue routine care and medications. If patient able to void independently prior to 1600 will discharge home with precautions. Objective - Vital Signs/Intake & Output Vital Signs: Vital Signs x48h Temp Pulse Resp BP Pulse Ox 06/09/23 07:53 36.6 C 87 16 106/62 99 06/09/23 04:29 36.5 C 84 16 112/68 Intake & Output: Intake & Output 06/06/23 06/07/23 06/08/23 06/09/23 23:59 23:59 23:59 23:59 Intake Total 633.256 3089.999 2582.483 Output Total 50 1675 1230 1735 Balance 081.251 4757.999 1352.483 -1735
[2023-06-10 07:43] VITALS: BP 117/73
--- NOTE | 2023-06-10 11:04 | Discharge Plan ---
Discharge Plan Problem Reviewed?: Yes Disposition: Home, Self Care Condition: Good Diet: Regular Activity Restrictions: No Restrictions Weight Bearing: Full Weight Instruction Topics: Constipation, Breastmilk Expressing, Self Care, Breastfeed Holds, Nutrition , Vaginal After No Smoking: If you smoke, Please STOP! Call for help. Follow-up with: Chana Crystal CNM, [facility] [Provider Admit Priv/Credential] -
--- NOTE | 2023-06-10 11:24 | DISCHARGE SUMMARY ---
Discharge Summary Condition at Discharge: Good Discharge Disposition: 01 Home, Self Care - HOSPITAL COURSE Hospital Course: Date of Admission: 06/06/2023 Date of Discharge: 06/07/2023 Diagnosis on Admission: 1. 38yo @ 39.1wks gestation by IVF transfer date 2. IVF 3. Advanced maternal age 4. FHR Category I 5. GBS positive Diagnosis on Discharge: 1. 38yo PPD#1 s/p TSVB viable male infant 2. 3. Urinary retention Brief History: She is a patient of [facility] who presented on 06/06/2023 for medical induction of labor secondary to IVF and advanced maternal age. Prior to admission she had a cervical ripening balloon and 1 dose of 25mcg BC misoprostol for pre-induction cervical ripening. She received 2 additional doses of 50mcg BC misoprostol for pre-induction cervical ripening followed by induction of labor with pitocin and a maximum infusion rate of 24mU/mL. AROM occurred for labor augmentation and was noted to be a moderate amount of clear fluid. Epidural was placed per maternal request. She received adequate treatment for GBS positive status per protocol. Her labor was complicated by prolonged rupture of membranes, prolonged active phase, and prolonged pitocin induction of labor. She was typed and crossed x 2 units and OB physician was preset on the labor and delivery unit at the time of delivery in the event of a hemorrhage due to her increase risk. She progressed to spontaneously deliver a viable male on 05/10/2023 @ 1153. Tight nuchal cord x 1 was delivered through and cleat layer presence requested for support with resuscitation. Apgars were 2/5/8 at 1, 5 and 10 minutes respectively. 1st degree vaginal laceration was repaired using a 2-[address]-1 needle in standard fashion and under sterile conditions. QBL 562mL. She has had difficulty with urinary hesitancy and retention initially in her course. She had an indwelling urinary catheter x 10 hours for the first night . After removal she was able to urinate but had significan t post void residual volume. She did bladder training over night last night with mosquito sprayer and her post void residual volume has greatly improved. She continues to experience mild urinary hesitancy but denies pain or burning with urination and she feels it is largely psychosomatic at this point. We reviewed continued bladder training/ timed voiding at home and pt feels comfortable with discussed plan. She has otherwise been doing well in her course. She is without difficulty and she is bonding well with her baby. She is ambulating and tolerating a regular diet. Her bleeding is decreased and is light and her pain is well controlled with oral medications. She will be discharged home today on day #2 with instructions to continue taking her vitamin while and to continue taking ibuprofen and tylenol over the counter as needed for pain management. She intends to follow up with myself at [facility] in 1 week for routine visit or sooner if needed. She has been given precautions to call if she has any worsening fevers, chills, abdominal pain, increased vaginal bleeding or foul smelling vaginal lochia. Physical exam: Normocephalic, atraumatic. Heart RRR w/o M/G/R, lungs CTAB, abdomen soft and nontender with fundus firm at U-1, bilateral LE's 1+ edema bilaterally. Perineum intact, repair with mild edema, light lochia rubra. Mood is good. - ALLERGIES Allergies/Adverse Reactions: Allergies Allergy/AdvReac Type Severity Reaction Status Date / Time No Known Drug Allergies Allergy Verified 06/06/23 08:32 - MEDICATIONS Home Medications: Ambulatory Orders Medication Instructions Recorded Confirmed Ferrous Sulfate [Feosol] 325 mg PO BID 06/06/23 06/06/23 Levothyroxine [Synthroid] 25 mcg PO DAILY 06/06/23 06/06/23 Pnv No.95/Ferrous Fum/Folic AC 1 tab PO DAILY 06/06/23 06/06/23 [ Tablet]
--- NOTE | 2023-06-10 18:18 | Labor Flowsheet ---
Labor Flowsheet Datetime Report Generated by CPN: 06/10/2023 18:18 Datetime: 06/10/2023 07:24 VITAL SIGNS NBP Sys/Yoselin/Mean (mmHg): 117 : 73 : 83 Pulse: 92 Datetime: 06/08/2023 13:53 Stage of : Datetime: 06/08/2023 12:44 SpO2 (%): 100 Datetime: 06/08/2023 12:11 PATIENT CARE IV/Blood Work: IV Started Datetime: 06/08/2023 11:54 LaborFlag: Labor Datetime: 06/08/2023 11:53 Frequency (min): 2-3 Duration (sec): 60-90 ASSESSMENT A Monitor Mode: External US FHR Baseline Rate : 155 Variability: Minimal - Undetectable to <=5 bpm Accelerations: None Decelerations: Variable; Prolonged Category: Category II Datetime: 06/08/2023 11:37 Pushing Progress: Descent with Pushing; Pushing Effectively with Contractions Datetime: 06/08/2023 11:29 Patient Care Comments: Shetty removed 130mL of urine Datetime: 06/08/2023 11:24 VAGINAL EXAM Dilatation (cm): 10.0 Effacement (%): 100 Exam by: A.Bonilla,CNM Datetime: 06/08/2023 11:14 Temperature (C): 37.1 Datetime: 06/08/2023 11:02 STAGE 2 Pushing: Coached on Pushing Pushing Position: Pushing with Contractions Stage 2 Comments: Pt begins pushing with A.Bonilla,CNM Datetime: 06/08/2023 10:54 Station: -1 Datetime: 06/08/2023 10:51 COMMUNICATION Communication: Provider at Bedside Provider Notified (Name): A. Bonilla Datetime: 06/08/2023 10:45 Comments: tracing MHR @ times Datetime: 06/08/2023 10:30 [place] Units (mmHg): 95 MEDICATIONS Pitocin (milliunits): Increased to @ 24 Datetime: 06/08/2023 09:45 Medication Comments: Chana Bonilla updated Datetime: 06/08/2023 09:15 Resting Tone IUP (mmHg): 25 Intensity IUP (mmHg): 45-85 Datetime: 06/08/2023 09:03 Patient Position/Activity: Left Extreme Datetime: 06/08/2023 08:15 UTERINE ACTIVITY Monitor Mode: Internal Quality: Strong Pattern: Normal: <= 5 Contractions in 10 Minutes Resting Tone (Palpate): Relaxed Datetime: 06/08/2023 07:30 Contraction Comments: IUPC not working; replaced Datetime: 06/08/2023 07:27 Monitor Interventions for UA: IUPC Inserted Actions for Decelerations: Other Cervix, Consistency: Firm Cervix, Position: Midposition Datetime: 06/08/2023 06:30 Analgesics/Sedatives: Tylenol (mg) @ 1000 Datetime: 06/08/2023 05:36 Epidural Procedure Other: Redose Datetime: 06/08/2023 05:30 Antibiotics: Ampicillin IV 1 Gm Antiemetics/Antacids: Other Antiemetic/Antacid @ Benadryl 50mg Datetime: 06/08/2023 05:19 Anesthesia Comments: Request to have evaluate Datetime: 06/08/2023 04:46 Pain Presence: Constant Pain Type: Sharp Pain Assessment Comments: Left sciatic Datetime: 06/08/2023 04:30 Pitocin Checklist: At Least 1 Acceleration of 15 bpm x 15 Seconds in 30 Minutes or Adequate Variabi lity; No More than 1 Late Deceleration Occurred in Past 30 Minutes; No More than 2 Variable Decelerat ions > 60 Seconds in Duration and decreasing >60 bpm in 30 minutes; No More than 5 Uterine Contractio ns in 10 Minutes for any 20 Minute Interval; Uterus Palpates Soft between Contractions; IUPC Resting Tone less than 25 mmHg Datetime: 06/08/2023 03:58 Temperature Route: Oral Datetime: 06/08/2023 00:58 Vaginal Bleeding: Scant Datetime: 06/08/2023 00:40 Communication Comments: messaged to request to come for IUPC placement. Datetime: 06/08/2023 00:30 Monitor Interventions for FHR: Ultrasound Adjusted Datetime: 06/07/2023 23:45 Notification Reason: Status Update; Uterine Activity Datetime: 06/07/2023 19:30 FHR Baseline Changes: No Baseline Change Datetime: 06/07/2023 17:56 Pain Location: Back Pain Coping: Breathing Through Contractions Comfort Measures: Breathing/Relaxation Datetime: 06/07/2023 16:53 Vaginal Exam Comments: cervical edema Datetime: 06/07/2023 16:15 PAIN Pain Scale: 2 Datetime: 06/07/2023 13:00 Respirations: 15 Datetime: 06/07/2023 08:45 Vital Sign Comments: Arm bent, will calm patient, straighten arm and repeat. Datetime: 06/07/2023 06:25 Anesthesia Level Check: T11 Datetime: 06/07/2023 05:25 Strip Reviewed by: [email or web address] Datetime: 06/07/2023 03:58 I/O Interventions: Clear Liquids Given Datetime: 06/07/2023 03:14 Amniotic Fluid Color: Clear Amniotic Fluid Amount: Moderate Hygiene: Underpad Changed; Peripad Changed Datetime: 06/06/2023 23:46 Consults: Anesthesia Datetime: 06/06/2023 23:39 Amniotic Fluid Odor: Normal Datetime: 06/06/2023 22:57 Magnesium/Antihypertensives: Ephedrine IV (mg) @ 5 Datetime: 06/06/2023 21:56 Membranes Ruptured Date/Time: 06/06/2023 20:43 Datetime: 06/06/2023 21:11 Epidural Procedure: Loading Dose Datetime: 06/06/2023 21:02 ANESTHESIA Epidural Positioning: Sitting Datetime: 06/06/2023 21:00 PROCEDURE TIME OUT Procedure Verify: Accurate Procedure Consent Form Datetime: 06/06/2023 20:43 Membrane Status: Ruptured Membranes Rupture Method: Artificial Datetime: 06/06/2023 19:33 MATERNAL ASSESSMENT Level of Consciousness: Alert DTR's/Clonus: DTRs 1+ Headache: Denies Breath Sounds, Left: Clear and Equal Breath Sounds, Right: Clear and Equal Nausea/Vomiting: Denies RUQ Epigastric Pain: Denies TEACHING Instructional Method: Verbal Plan of Care: Plan of Care Discussed Datetime: 06/06/2023 13:07 Cervical Ripening Agents: Shetty Balloon; Cytotec @ Datetime: 06/05/2023 18:00 Pain Relief Measures: Comfort Measures
[2023-06-11] MEDS ORDERED: PRENATAL VITAMIN TABLET PO SCH (08:00)
[2023-06-11] MEDS ORDERED: LEVOTHYROXINE 25 MCG TABLET PO SCH (09:00)
== END 2023-06-10 11:45 | disposition home or self-care (01) | DRG 807 ==
LOC: FBP 07:55 → WFO 07:55 → FBP 08:28
PROVIDERS: ADMIT Nurse Practitioner Obstetrics & Gynecology; ATTEND Nurse Practitioner Obstetrics & Gynecology
PROC: 3E033VJ Introduction of Other Hormone into Peripheral Vein, Percutaneous Approach (ICD-10-PCS; 2023-06-06)
PROC: 10907ZC Drainage of Amniotic Fluid, Therapeutic from Products of Conception, Via Natural or Artificial Opening (ICD-10-PCS; 2023-06-06)
PROC: 3E0DXGC Introduction of Other Therapeutic Substance into Mouth and Pharynx, External Approach (ICD-10-PCS; 2023-06-06)
PROC: 4A1HXCZ Monitoring of Products of Conception, Cardiac Rate, External Approach (ICD-10-PCS; 2023-06-06)
PROC: 10H07YZ Insertion of Other Device into Products of Conception, Via Natural or Artificial Opening (ICD-10-PCS; 2023-06-07)
PROC: 10E0XZZ Delivery of Products of Conception, External Approach (ICD-10-PCS; principal; 2023-06-08)
PROC: 0HQ9XZZ Repair Perineum Skin, External Approach (ICD-10-PCS; 2023-06-08)
DX: O99.824 Streptococcus B carrier state complicating childbirth (principal); Z37.0 Single live birth; Z3A.39 39 weeks gestation of pregnancy; O63.9 Long labor, unspecified; O70.0 First degree perineal laceration during delivery; O75.89 Other specified complications of labor and delivery; O90.89 Other complications of the puerperium, not elsewhere classified; R33.9 Retention of urine, unspecified; R39.11 Hesitancy of micturition; O99.284 Endocrine, nutritional and metabolic diseases complicating childbirth; E03.9 Hypothyroidism, unspecified; Z79.890 Hormone replacement therapy
CPT/HCPCS: 59409; 86850; 86900; 86901; 86920; A9270; J0131; J1200; J2210; J7120

== ENCOUNTER 2023-06-12 01:11 | Observation (INO) | payer BC ==
--- NOTE | 2023-06-12 01:53 | ED Physician Documentation ---
History of Present Illness - Stated complaint Stated Complaint: POST SWELLING/HIGH BP - Chief complaint Chief Complaint: General - History obtained from History obtained from: Patient - Additonal information Additional information: Patient is a 38-year-old female, G2, P1 (1 prior miscarriage) presenting for headache and elevated blood pressure. She is approximately 4 days from a vaginal delivery. She reports having prolonged labor of approximately 40 hours. She did have an epidural. Postdelivery course was complicated with difficulties with urination but she was able to go home on Sunday. She has not had issues with her blood pressure through the . This evening around 8:00 she started having a headache. 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 She denies changes to her vision. She does feel little short of air. Denies chest pain. No abdominal pain. Has noted increased swelling in her legs although she did have significant swelling when she was discharged from the hospital already. Review of Systems Constitutional: denies: Fever Cardiac: denies: Chest pain / pressure Respiratory: reports: Dyspnea GI: denies: Abdominal Pain PD PAST MEDICAL HISTORY - Past Medical History Past Medical History: Yes Cardiovascular: None Respiratory: None Neuro: None Endocrine/Autoimmune: HyPOthyroidism GI: None SHINGLE CATCHER: None : None Psych: None Musculoskeletal: None Derm: None - Past Surgical History Past Surgical History: No - Present Medications Home Medications: Ambulatory Orders Medication Instructions Recorded Confirmed Ferrous Sulfate [Feosol] 325 mg PO BID 06/06/23 06/12/23 Levothyroxine [Synthroid] 25 mcg PO DAILY 06/06/23 06/12/23 Pnv No.95/Ferrous Fum/Folic AC 1 tab PO DAILY 06/06/23 06/12/23 [ Tablet] Aspirin [[place] Aspirin] 81 mg PO DAILY 06/12/23 06/12/23 - Allergies Allergies/Adverse Reactions: Allergies Allergy/AdvReac Type Severity Reaction Status Date / Time No Known Drug Allergies Allergy Verified 06/12/23 01:16 - Social History Does the pt smoke?: No Smoking Status: Never smoker Does the pt drink ETOH?: Yes Does the pt have substance abuse?: No - Immunizations Immunizations are current?: Yes PD ED PE NORMAL - General General: Alert and oriented X 3, No acute distress, Well developed/nourished - HEENT HEENT: Atraumatic, PERRL, EOMI, Moist mucous membranes - Neck Neck: Supple, no meningeal sign - Cardiac Cardiac: RRR - Respiratory Respiratory: No respiratory distress, Clear bilaterally - Abdomen Abdomen: Soft, Non tender, Non distended - Derm Derm: Warm and dry - Extremities Extremities: No calf tenderness / cord, Other (Bilateral lower extremity edema) - Neuro Neuro: Alert and oriented X 3, No motor deficit, Normal speech Results - Vitals Vitals: Vital Signs - 24 hr 06/12/23 06/12/23 06/12/23 01:18 01:35 01:47 Temperature 36.6 C Heart Rate 84 79 80 Respiratory 18 19 20 Rate Blood Pressure 156/83 H 147/92 H 154/99 H O2 Saturation 100 97 97 06/12/23 06/12/23 06/12/23 02:00 02:10 02:15 Temperature Heart Rate 74 82 76 Respiratory 16 19 18 Rate Blood Pressure 147/84 H 139/79 H 138/81 H O2 Saturation 98 97 97 06/12/23 06/12/23 06/12/23 02:20 02:25 02:40 Temperature Heart Rate 78 78 77 Respiratory 19 18 17 Rate Blood Pressure 135/82 H 144/86 H 143/80 H O2 Saturation 97 96 97 06/12/23 02:45 Temperature Heart Rate 79 Respiratory 17 Rate Blood Pressure 132/73 H O2 Saturation 98 Oxygen O2 Source Room air - Labs Labs: Laboratory Tests 06/12/23 06/12/23 06/12/23 01:42 01:42 01:42 WBC 7.0 RBC 1.87 L Hgb 6.1 L* Hct 17.8 L* MCV 95.2 MCH 32.6 H MCHC 34.3 RDW 13.1 Plt Count 169 MPV 9.4 Neut # (Auto) 4.3 Lymph # (Auto) 1.9 [place] # (Auto) 0.4 Eos # (Auto) 0.1 Baso # (Auto) 0.0 Absolute Nucleated RBC 0.07 Nucleated RBC % 1.0 Sodium 138 Potassium 3.9 Chloride 104 Carbon Dioxide 26 Anion Gap 8.0 BUN 10 Creatinine 1.0 Estimated GFR (MDRD) 62 L Glucose 86 Calcium 8.8 Total Bilirubin 0.2 AST 43 H ALT 50 Alkaline Phosphatase 75 Lactate Dehydrogenase 163 Total Protein 5.3 L Albumin 2.9 L Globulin 2.4 Albumin/Globulin Ratio 1.2 Lipase 22 Urine Color Urine Clarity Urine pH Ur Specific [place] Urine Protein Urine Glucose (UA) Urine Ketones Urine Occult Blood Urine Nitrite Urine Bilirubin Urine Urobilinogen Ur Leukocyte Esterase Urine RBC Urine WBC Ur Squamous Epith Cells Urine Bacteria Ur Microscopic Review Urine Culture Comments 06/12/23 01:42 WBC RBC Hgb Hct MCV MCH MCHC RDW Plt Count MPV Neut # (Auto) Lymph # (Auto) [place] # (Auto) Eos # (Auto) Baso # (Auto) Absolute Nucleated RBC Nucleated RBC % Sodium Potassium Chloride Carbon Dioxide Anion Gap BUN Creatinine Estimated GFR (MDRD) Glucose Calcium Total Bilirubin AST ALT Alkaline Phosphatase Lactate Dehydrogenase Total Protein Albumin Globulin Albumin/Globulin Ratio Lipase Urine Color YELLOW Urine Clarity HAZY Urine pH 6.5 Ur Specific [place] <=1.005 Urine Protein NEGATIVE Urine Glucose (UA) NEGATIVE Urine Ketones NEGATIVE Urine Occult Blood MODERATE H Urine Nitrite NEGATIVE Urine Bilirubin NEGATIVE Urine Urobilinogen 0.2 (NORMAL) Ur Leukocyte Esterase MODERATE H Urine RBC 0-5 Urine WBC 6-10 H Ur Squamous Epith Cells FEW Squamous Urine Bacteria Few Ur Microscopic Review INDICATED Urine Culture Comments INDICATED PD Medical Decision Making - ED course Complexity details: reviewed results, re-evaluated patient, d/w patient, d/w leasing sales consultant (Dr. Leija) ED course: Patient is a 38-year-old female presenting for evaluation for elevated blood pressures and headache and is approximately 4 days . Initial 3 blood pressures are over 140/90. She does report having a slight headache but did take Tylenol prior to arrival. Normal neuroexam. Does report feeling some shortness of air. No chest pain. Does have leg swelling which appears to be symmetric. Labs including CBC, chemistries, urinalysis and LDH were obtained. I did discuss case with Dr. Leija and he is agrees with plan for administration of the dose of labetalol. On review of labs patient is significantly anemic with a hemoglobin of 6.1. This is approximately a 4.5 g drop from labs a week ago prior to delivery. This likely accounts for why she is feeling some shortness of air. Patient is agreeable to receiving a blood transfusion. Blood pressure did improve after labetalol. Again discussed with Dr. Leija who will bring her in for observation for blood transfusion as well as for further blood pressure monitoring.He would not recommend starting magnesium unless blood pressures are above 160/110 or she has other lab abnormalities. 0309 - Dr. Leija has seen the patient at the bedside and last blood pressure was above 160 so he is planning on starting a magnesium drip. - Critical Care Time(min): 32 Time Includes: Direct patient care, Review records, Reassess patient, Document care, Medical consult Departure - Departure Disposition: ED Place in Observation Clinical Impression: Acute anemia, hypertension Condition: Good Discharge Date/Time: 06/12/23 03:29
[2023-06-12 02:01] LABS: BILIRUBIN,URINE NEGATIVE (NEGATIVE); GLUCOSE, URINE (UA) NEGATIVE (NEGATIVE); KETONES,URINE (UA) NEGATIVE (NEGATIVE); LEUKOCYTE ESTERASE, URINE MODERATE (NEGATIVE); NITRITE,URINE NEGATIVE (NEGATIVE); OCCULT BLOOD,URINE MODERATE (NEGATIVE); PH,URINE 6.5 PH (5.0-7.5); PROTEIN,URINE NEGATIVE (NEGATIVE); UROBILINOGEN,URINE 0.2 (NORMAL) E.U./dL (NORMAL)
[2023-06-12] MEDS: LABETALOL 20 MG/4 ML SYRINGE IVP STA (02:01)
[2023-06-12 02:03] LABS: BASOPHILS % (AUTO) 0.1 %; EOSINOPHILS # (AUTO) 0.1 10^3/uL (0.0-0.7); EOSINOPHILS % (AUTO) 1.2 %; LYMPHOCYTES # (AUTO) 1.9 10^3/uL (1.5-3.5); LYMPHOCYTES % (AUTO) 27.2 %; MEAN CORPUSCULAR HEMOGLOBIN 32.6 pg (27.0-31.0); MEAN CORPUSCULAR HGB CONC 34.3 g/dL (32.0-36.0); MEAN CORPUSCULAR VOLUME 95.2 fL (81.0-99.0); MEAN PLATELET VOLUME 9.4 fL (7.9-10.8); MONOCYTES # (AUTO) 0.4 10^3/uL (0.0-1.0); MONOCYTES % (AUTO) 6.2 %; NEUTROPHILS # (AUTO) 4.3 10^3/uL (1.5-6.6); NEUTROPHILS % (AUTO) 61.3 %; NRBC ABSOLUTE COUNT (AUTO) 0.07 x10^3/uL; PLT - PLATELET COUNT 169 10^3/uL (130-450); RED BLOOD COUNT 1.87 10^6/uL (4.20-5.40); RED CELL DISTRIBUTION WIDTH 13.1 % (12.0-15.0)
[2023-06-12 02:11] LABS: HGB - HEMOGLOBIN 6.1 g/dL (12.0-16.0)
[2023-06-12 02:12] LABS: CLARITY,URINE HAZY (CLEAR); HCT - HEMATOCRIT 17.8 % (37.0-47.0)
[2023-06-12 02:15] LABS: BACTERIA,URINE Few /HPF (None Seen); RBC,URINE 0-5 /HPF (0-5); SQUAMOUS EPITHELIAL CELL,UR FEW Squamous (<= Few)
[2023-06-12 02:21] LABS: ALBUMIN 2.9 g/dL (3.2-5.5); ALBUMIN/GLOBULIN RATIO 1.2 (1.0-2.2); BILIRUBIN,TOTAL 0.2 mg/dL (0.2-1.0); CALCIUM 8.8 mg/dL (8.5-10.3); POTASSIUM 3.9 mmol/L (3.5-4.5); TOTAL PROTEIN 5.3 g/dL (6.4-8.9)
[2023-06-12] MEDS ORDERED: NIFEdipine 10 MG CAPSULE PO PRN (02:50)
[2023-06-12] MEDS ORDERED: hydrALAZINE INJ 20 MG/ML VIAL IVP PRN ×2 (02:50)
[2023-06-12] MEDS ORDERED: LABETALOL 20 MG/4 ML SYRINGE IVP PRN ×3 (02:50)
--- NOTE | 2023-06-12 02:50 | HISTORY & PHYSICAL EXAMINATION ---
History and Physical - History and Physical HPI: Patient is a 38-year-old G1, P1 status post spontaneous vaginal delivery on 06/08/2023, 4 days ago. She developed a headache last night at around 1999 and rates this 05/26. Did take Tylenol several hours later. Was taking her blood pressure at home and noticed some elevations at home. Here in the ED, initially 150s over 90s. She received dose of labetalol as she approached the 160 threshold, and this brought down to 130s/70s, but since returned to the 170s/100s despite treatment. was complicated by anemia, IVF , advanced maternal age, hypothyroidism. Delivery was prolonged, but had a successful vaginal delivery. She developed swelling around the time of delivery significantly in her legs and hands. She does not feel like this has acutely worsened, but is noticeable. Milk supply is limited and is supplementing with formula. Does have some minor shortness of breath, but able to easily carry on a conversation no chest pain. No vision changes. No abdominal pain/right upper quadrant pain. PMH AMA Hypothyroidism Infertility PSH No prior surgeries SH Denies tobacco, drugs Family History Multiple family members with preeclampsia Allergies No known drug allergies Medications vitamin Levothyroxine Various sulfate Physical exam: Temp Pulse Resp BP Pulse Ox O2 Flow Rate 97.9 F 79 17 132/73 H 98 06/12/23 01:18 06/12/23 02:45 06/12/23 02:45 06/12/23 02:45 06/12/23 02:45 General: Alert, oriented, no acute distress Head: Normal cephalic atraumatic Eyes: PERRLA, extraocular motions intact. Respiratory: Normal rate of respiration. No accessory muscle use, normal respi ratory effort. Clear to auscultation bilaterally Cardiovascular: Regular rate and rhythm Abdomen: Nontender, nondistended Extremities: Normal range of motion, 2+ pitting edema in lower extremities, s wollen hands without pitting edema Neuro: Oriented x3. Normal movements Psych: Appropriate mood and affect. Normal judgment and insight Laboratory Last Values WBC 7.0 x10^3/uL (4.8-10.8) 06/12/23 01:42 RBC 1.87 10^6/uL (4.20-5.40) L 06/12/23 01:42 Hgb 6.1 g/dL (12.0-16.0) L* 06/12/23 01:42 Hct 17.8 % (37.0-47.0) L* 06/12/23 01:42 MCV 95.2 fL (81.0-99.0) 06/12/23 01:42 MCH 32.6 pg (27.0-31.0) H 06/12/23 01:42 MCHC 34.3 g/dL (32.0-36.0) 06/12/23 01:42 RDW 13.1 % (12.0-15.0) 06/12/23 01:42 Plt Count 169 10^3/uL (130-450) 06/12/23 01:42 MPV 9.4 fL (7.9-10.8) 06/12/23 01:42 Neut # (Auto) 4.3 10^3/uL (1.5-6.6) 06/12/23 01:42 Lymph # (Auto) 1.9 10^3/uL (1.5-3.5) 06/12/23 01:42 [place] # (Auto) 0.4 10^3/uL (0.0-1.0) 06/12/23 01:42 Eos # (Auto) 0.1 10^3/uL (0.0-0.7) 06/12/23 01:42 Baso # (Auto) 0.0 10^3/uL (0.0-0.1) 06/12/23 01:42 Absolute Nucleated RBC 0.07 x10^3/uL 06/12/23 01:42 Nucleated RBC % 1.0 /100WBC 06/12/23 01:42 Sodium 138 mmol/L (135-145) 06/12/23 01:42 Potassium 3.9 mmol/L (3.5-4.5) 06/12/23 01:42 Chloride 104 mmol/L (101-111) 06/12/23 01:42 Carbon Dioxide 26 mmol/L (21-32) 06/12/23 01:42 Anion Gap 8.0 (6-13) 06/12/23 01:42 BUN 10 mg/dL (6-20) 06/12/23 01:42 Creatinine 1.0 mg/dL (0.6-1.3) 06/12/23 01:42 Estimated GFR (MDRD) 62 (>89) L 06/12/23 01:42 Glucose 86 mg/dL (74-104) 06/12/23 01:42 Calcium 8.8 mg/dL (8.5-10.3) 06/12/23 01:42 Total Bilirubin 0.2 mg/dL (0.2-1.0) 06/12/23 01:42 AST 43 IU/L (10-42) H 06/12/23 01:42 ALT 50 IU/L (10-60) 06/12/23 01:42 Alkaline Phosphatase 75 IU/L (42-121) 06/12/23 01:42 Lactate Dehydrogenase 163 IU/L (140-271) 06/12/23 01:42 Total Protein 5.3 g/dL (6.4-8.9) L 06/12/23 01:42 Albumin 2.9 g/dL (3.2-5.5) L 06/12/23 01:42 Globulin 2.4 g/dL (2.1-4.2) 06/12/23 01:42 Albumin/Globulin Ratio 1.2 (1.0-2.2) 06/12/23 01:42 Lipase 22 U/L (11-82) 06/12/23 01:42 Urine Color YELLOW 06/12/23 01:42 Urine Clarity HAZY (CLEAR) 06/12/23 01:42 Urine pH 6.5 PH (5.0-7.5) 06/12/23 01:42 Ur Specific [place] <=1.005 (1.002-1.030) 06/12/23 01:42 Urine Protein NEGATIVE mg/dL (NEGATIVE) 06/12/23 01:42 Urine Glucose (UA) NEGATIVE mg/dL (NEGATIVE) 06/12/23 01:42 Urine Ketones NEGATIVE mg/dL (NEGATIVE) 06/12/23 01:42 Urine Occult Blood MODERATE (NEGATIVE) H 06/12/23 01:42 Urine Nitrite NEGATIVE (NEGATIVE) 06/12/23 01:42 Urine Bilirubin NEGATIVE (NEGATIVE) 06/12/23 01:42 Urine Urobilinogen 0.2 (NORMAL) E.U./dL (NORMAL) 06/12/23 01:42 Ur Leukocyte Esterase MODERATE (NEGATIVE) H 06/12/23 01:42 Urine RBC 0-5 /HPF (0-5) 06/12/23 01:42 Urine WBC 6-10 /HPF (0-5) H 06/12/23 01:42 Ur Squamous Epith Cells FEW Squamous (<= Few) 06/12/23 01:42 Urine Bacteria Few /HPF (None Seen) 06/12/23 01:42 Ur Microscopic Review INDICATED 06/12/23 01:42 Urine Culture Comments INDICATED 06/12/23 01:42 Plan 38-year-old day 4 from with preeclampsia severe features and acute blood loss anemia 1. Preeclampsia with severe features -Initially thought to be mild, however headache is mild, but severe range blood pressures. -Labs are relatively unremarkable. -Will start magnesium sulfate for seizure prophylaxis for severe range blood pressures and headache. -Preeclampsia parameters for treating blood pressures and vital checks. -Recheck labs later this morning 2. Acute blood loss anemia -QBL of 562 -On admission for labor, hemoglobin 10.6, now 6.1 . No postoperative hemoglobin so unsure of acute drop. Has a normal LDH now, so possibly within normal range with blood loss -Receiving 1 unit PRBCs, will likely need a second which is on hold. Repeat CBC 4 hours after unit is received. I expect patient to be discharged or transferred within 96 hours.
[2023-06-12] MEDS: LACTATED RINGERS 1,000 ML IV SCH (03:44)
[2023-06-12] MEDS: MAGNESIUM SULFATE 4 GRAM 4 GM/50 ML BAG IV ONE (03:55)
[2023-06-12] MEDS: SODIUM CHLORIDE FLUSH 0.9% 10 ML SYRINGE IVP PRN (04:06)
[2023-06-12] MEDS ORDERED: SODIUM CHLORIDE 0.9% 500 ML IV ONE (04:13)
[2023-06-12] MEDS: MAGNESIUM SULFATE IN WATER 20 GM/500 ML IV.SOLN IV SCH (04:26)
[2023-06-12] MEDS: ACETAMINOPHEN 500 MG TABLET PO SCH (05:59)
[2023-06-12] MEDS: SODIUM CHLORIDE FLUSH 0.9% 10 ML SYRINGE IVP SCH (08:23)
--- NOTE | 2023-06-12 09:06 | PHARMACY PROGRESS NOTE ---
- Best Possible Medication History Admit Date and Time: 06/12/23 0250 Processed by: Nursing Medications reviewed in ED?: No Medication History completed: Yes Patient Interview: Completed Secondary Source(s): Insurance records As the person ultimately responsible for medication therapy, providers are able to order a medication from an existing home medication list in [facility] via the "Reconcile Routine" prior to Confirmation of that medication by cad application support specialist. Such practice is discouraged except when the physician, in their clinical judgment, deems that a medical need exists for a medication without regard to previous use.
[2023-06-12] MEDS: polyethylene glycoL 3350 17 GM PACKET PO SCH (09:20)
[2023-06-12] MEDS: DOCUSATE SODIUM 100 MG CAPSULE PO SCH (09:20)
[2023-06-12] MEDS: IBUPROFEN 600 MG TABLET PO PRN (09:20)
--- NOTE | 2023-06-12 11:58 | PROVIDER PROGRESS NOTE ---
Subjective - Subjective Subjective: Patient still in good mood today. Headache resolved. Voiding without difficulty. No RUQ pain or change in vision. Shortness of breath resolved. Physical Exam Constitutional: alert, no acute distress, well hydrated, well developed, well nourished, appropriate dress. Cardiovascular: Regular rate and rhythm. Respiratory: no respiratory distress. Abdomen: nondistended, nontender, no guarding. Psych: affect and mood appropriate, normal interaction, good eye contact. Extremities: 2+ bilateral pitting edema. 38-year-old day 4 from with preeclampsia severe features and acute blood loss anemia 1. Preeclampsia with severe features -No additional severe range pressures. No sign of worsening disease, -Labs are relatively unremarkable. -Continue MgSO4 for 24 hours -Preeclampsia parameters for treating blood pressures and vital checks. 2. Acute blood loss anemia -vitals stable. HGB 6.8 after one unit. Will give second. Repeat H/H 4 hours post transfusion. Anticipate stability overnight and if stable in AM, can discharge if able to tolerate routine activities. 3. care -Help with /pumping. Objective - Vital Signs/Intake & Output Vital Signs: Vital Signs x48h Temp Pulse Resp BP BP Pulse Ox 06/12/23 11:00 98.1 F 88 18 150/81 H 99 06/12/23 09:52 98.2 F 87 18 131/79 H 99 06/12/23 08:17 98.1 F 71 16 124/75 98 06/12/23 07:00 73 16 111/65 06/12/23 06:30 78 16 128/76 06/12/23 06:01 98.6 F 89 120/79 06/12/23 06:00 98.6 F 75 18 120/79 99 06/12/23 05:45 131/75 H 06/12/23 05:30 114 H 18 141/91 H 125/86 H 06/12/23 05:10 98.1 F 82 18 126/81 H 126/81 H 97 06/12/23 04:43 97.9 F 77 18 127/80 98 06/12/23 04:30 80 18 123/76 06/12/23 04:15 79 119/71 06/12/23 04:00 83 18 131/79 H Intake & Output: Intake & Output 06/09/23 06/10/23 06/11/2326/24 23:59 23:59 23:59 23:59 Intake Total 360 Output Total 0666 Balance -1916 - Lab Results Fish Bones: 06/12/23 12:36 06/12/23 12:36 Other Labs: Lab Results x24hrs 06/12/23 06/12/23 06/12/23 Range/Units 02:50 01:42 01:42 WBC (4.8-10.8) x10^3/uL RBC (4.20-5.40) 10^6/uL Hgb (12.0-16.0) g/dL Hct (37.0-47.0) % MCV (81.0-99.0) fL MCH (27.0-31.0) pg MCHC (32.0-36.0) g/dL RDW (12.0-15.0) % Plt Count (130-450) 10^3/uL MPV (7.9-10.8) fL Neut # (Auto) (1.5-6.6) 10^3/uL Lymph # (Auto) (1.5-3.5) 10^3/uL [place] # (Auto) (0.0-1.0) 10^3/uL Eos # (Auto) (0.0-0.7) 10^3/uL Baso # (Auto) (0.0-0.1) 10^3/uL Absolute Nucleated RBC x10^3/uL Nucleated RBC % /100WBC Sodium (135-145) mmol/L Potassium (3.5-4.5) mmol/L Chloride (101-111) mmol/L Carbon Dioxide (21-32) mmol/L Anion Gap (6-13) BUN (6-20) mg/dL Creatinine (0.6-1.3) mg/dL Estimated GFR (MDRD) (>89) Glucose (74-104) mg/dL Calcium (8.5-10.3) mg/dL Total Bilirubin (0.2-1.0) mg/dL AST (10-42) IU/L ALT (10-60) IU/L Alkaline Phosphatase (42-121) IU/L Lactate Dehydrogenase 163 (140-271) IU/L Total Protein (6.4-8.9) g/dL Albumin (3.2-5.5) g/dL Globulin (2.1-4.2) g/dL Albumin/Globulin Ratio (1.0-2.2) Lipase (11-82) U/L Urine Color YELLOW Urine Clarity HAZY (CLEAR) Urine pH 6.5 (5.0-7.5) PH Ur Specific [place] <=1.005 (1.002-1.030) Urine Protein NEGATIVE (NEGATIVE) mg/dL Urine Glucose (UA) NEGATIVE (NEGATIVE) mg/dL Urine Ketones NEGATIVE (NEGATIVE) mg/dL Urine Occult Blood MODERATE H (NEGATIVE) Urine Nitrite NEGATIVE (NEGATIVE) Urine Bilirubin NEGATIVE (NEGATIVE) Urine Urobilinogen 0.2 (NORMAL) (NORMAL) E.U./dL Ur Leukocyte Esterase MODERATE H (NEGATIVE) Urine RBC 0-5 (0-5) /HPF Urine WBC 6-10 H (0-5) /HPF Ur Squamous Epith Cells FEW Squamous (<= Few) Urine Bacteria Few (None Seen) /HPF Ur Microscopic Review INDICATED Urine Culture Comments INDICATED Blood Type A POSITIVE Antibody Screen NEGATIVE Crossmatch IS Only See Detail 06/12/23 06/12/23 Range/Units 01:42 01:42 WBC 7.0 (4.8-10.8) x10^3/uL RBC 1.87 L (4.20-5.40) 10^6/uL Hgb 6.1 L* (12.0-16.0) g/dL Hct 17.8 L* (37.0-47.0) % MCV 95.2 (81.0-99.0) fL MCH 32.6 H (27.0-31.0) pg MCHC 34.3 (32.0-36.0) g/dL RDW 13.1 (12.0-15.0) % Plt Count 169 (130-450) 10^3/uL MPV 9.4 (7.9-10.8) fL Neut # (Auto) 4.3 (1.5-6.6) 10^3/uL Lymph # (Auto) 1.9 (1.5-3.5) 10^3/uL [place] # (Auto) 0.4 (0.0-1.0) 10^3/uL Eos # (Auto) 0.1 (0.0-0.7) 10^3/uL Baso # (Auto) 0.0 (0.0-0.1) 10^3/uL Absolute Nucleated RBC 0.07 x10^3/uL Nucleated RBC % 1.0 /100WBC Sodium 138 (135-145) mmol/L Potassium 3.9 (3.5-4.5) mmol/L Chloride 104 (101-111) mmol/L Carbon Dioxide 26 (21-32) mmol/L Anion Gap 8.0 (6-13) BUN 10 (6-20) mg/dL Creatinine 1.0 (0.6-1.3) mg/dL Estimated GFR (MDRD) 62 L (>89) Glucose 86 (74-104) mg/dL Calcium 8.8 (8.5-10.3) mg/dL Total Bilirubin 0.2 (0.2-1.0) mg/dL AST 43 H (10-42) IU/L ALT 50 (10-60) IU/L Alkaline Phosphatase 75 (42-121) IU/L Lactate Dehydrogenase (140-271) IU/L Total Protein 5.3 L (6.4-8.9) g/dL Albumin 2.9 L (3.2-5.5) g/dL Globulin 2.4 (2.1-4.2) g/dL Albumin/Globulin Ratio 1.2 (1.0-2.2) Lipase 22 (11-82) U/L Urine Color Urine Clarity (CLEAR) Urine pH (5.0-7.5) PH Ur Specific [place] (1.002-1.030) Urine Protein (NEGATIVE) mg/dL Urine Glucose (UA) (NEGATIVE) mg/dL Urine Ketones (NEGATIVE) mg/dL Urine Occult Blood (NEGATIVE) Urine Nitrite (NEGATIVE) Urine Bilirubin (NEGATIVE) Urine Urobilinogen (NORMAL) E.U./dL Ur Leukocyte Esterase (NEGATIVE) Urine RBC (0-5) /HPF Urine WBC (0-5) /HPF Ur Squamous Epith Cells (<= Few) Urine Bacteria (None Seen) /HPF Ur Microscopic Review Urine Culture Comments Blood Type Antibody Screen Crossmatch IS Only
[2023-06-12 12:45] LABS: BASOPHILS % (AUTO) 0.3 %; EOSINOPHILS # (AUTO) 0.1 10^3/uL (0.0-0.7); EOSINOPHILS % (AUTO) 0.8 %; LYMPHOCYTES # (AUTO) 1.4 10^3/uL (1.5-3.5); MEAN CORPUSCULAR HEMOGLOBIN 31.8 pg (27.0-31.0); MEAN CORPUSCULAR HGB CONC 32.4 g/dL (32.0-36.0); MEAN CORPUSCULAR VOLUME 98.1 fL (81.0-99.0); MEAN PLATELET VOLUME 9.7 fL (7.9-10.8); MONOCYTES # (AUTO) 0.5 10^3/uL (0.0-1.0); NEUTROPHILS # (AUTO) 5.3 10^3/uL (1.5-6.6); NEUTROPHILS % (AUTO) 70.1 %; NRBC ABSOLUTE COUNT (AUTO) 0.11 x10^3/uL; NUCLEATED RED BLOOD CELLS AUTO 1.5 /100WBC; PLT - PLATELET COUNT 151 10^3/uL (130-450); RED BLOOD COUNT 2.14 10^6/uL (4.20-5.40); RED CELL DISTRIBUTION WIDTH 13.9 % (12.0-15.0); WHITE BLOOD COUNT 7.5 x10^3/uL (4.8-10.8)
[2023-06-12 12:49] LABS: HGB - HEMOGLOBIN 6.8 g/dL (12.0-16.0)
[2023-06-12 13:02] LABS: ALBUMIN 2.7 g/dL (3.2-5.5); ALBUMIN/GLOBULIN RATIO 1.2 (1.0-2.2); BILIRUBIN,TOTAL 0.2 mg/dL (0.2-1.0); CALCIUM 8.5 mg/dL (8.5-10.3); CREATININE 0.7 mg/dL (0.6-1.3)
[2023-06-12 20:29] LABS: HCT - HEMATOCRIT 25.2 % (37.0-47.0); HGB - HEMOGLOBIN 8.3 g/dL (12.0-16.0)
--- NOTE | 2023-06-12 21:38 | PROVIDER PROGRESS NOTE ---
Subjective - Subjective Subjective: Patient doing well overall. No shortness of breath or chest pain. Occasional, intermittent blurry vision, but feels like this is from being tired and her magnesium not from significant changes. No right upper quadrant pain. Physical Exam Constitutional: alert, no acute distress, well hydrated, well developed, well nourished, appropriate dress. Respiratory: no respiratory distress. Talking normally. Abdomen: nondistended, nontender, no guarding. Psych: affect and mood appropriate, normal interaction, good eye contact. Preeclampsia with severe features -Discontinue magnesium sulfate at 24 hours. -No blood pressure requiring treatment. Did have occasional, nonsustained severe range blood pressure. -Good urine output. Acute blood loss anemia. -After 2 units of PRBCs, hemoglobin from 6.1-8.3, hematocrit from 17.8-25.2. -Symptoms have resolved. -Will recheck H/H in the a.m. Objective - Vital Signs/Intake & Output Vital Signs: Vital Signs x48h Temp Pulse Resp BP BP Pulse Ox 06/12/23 18:51 97.9 F 85 16 147/87 H 06/12/23 16:19 98.6 F 80 16 124/81 H 06/12/23 15:08 98.1 F 82 16 124/78 06/12/23 14:05 98.2 F 78 18 127/81 H 98 06/12/23 13:50 98.4 F 82 16 127/80 98 Intake & Output: Intake & Output 06/09/23 06/10/23 06/11/23 06/12/23 23:59 23:59 23:59 23:59 Intake Total 2145.833 Output Total 3296 Balance -1150.167 - Lab Results Fish Bones: 06/12/23 20:19 06/12/23 12:36 Other Labs: Lab Results x24hrs 06/12/23 06/12/23 06/12/23 Range/Units 20:19 12:36 12:36 WBC 7.5 (4.8-10.8) x10^3/uL RBC 2.14 L (4.20-5.40) 10^6/uL Hgb 8.3 L 6.8 L* (12.0-16.0) g/dL Hct 25.2 L 21.0 L (37.0-47.0) % MCV 98.1 (81.0-99.0) fL MCH 31.8 H (27.0-31.0) pg MCHC 32.4 (32.0-36.0) g/dL RDW 13.9 (12.0-15.0) % Plt Count 151 (130-450) 10^3/uL MPV 9.7 (7.9-10.8) fL Neut # (Auto) 5.3 (1.5-6.6) 10^3/uL Lymph # (Auto) 1.4 L (1.5-3.5) 10^3/uL [place] # (Auto) 0.5 (0.0-1.0) 10^3/uL Eos # (Auto) 0.1 (0.0-0.7) 10^3/uL Baso # (Auto) 0.0 (0.0-0.1) 10^3/uL Absolute Nucleated RBC 0.11 x10^3/uL Nucleated RBC % 1.5 /100WBC Sodium 130 L (135-145) mmol/L Potassium 4.0 (3.5-4.5) mmol/L Chloride 97 L (101-111) mmol/L Carbon Dioxide 26 (21-32) mmol/L Anion Gap 7.0 (6-13) BUN 8 (6-20) mg/dL Creatinine 0.7 (0.6-1.3) mg/dL Estimated GFR (MDRD) 94 (>89) Glucose 87 (74-104) mg/dL Calcium 8.5 (8.5-10.3) mg/dL Total Bilirubin 0.2 (0.2-1.0) mg/dL AST 39 (10-42) IU/L ALT 48 (10-60) IU/L Alkaline Phosphatase 67 (42-121) IU/L Lactate Dehydrogenase (140-271) IU/L Total Protein 5.0 L (6.4-8.9) g/dL Albumin 2.7 L (3.2-5.5) g/dL Globulin 2.3 (2.1-4.2) g/dL Albumin/Globulin Ratio 1.2 (1.0-2.2) Lipase (11-82) U/L Urine Color Urine Clarity (CLEAR) Urine pH (5.0-7.5) PH Ur Specific [place] (1.002-1.030) Urine Protein (NEGATIVE) mg/dL Urine Glucose (UA) (NEGATIVE) mg/dL Urine Ketones (NEGATIVE) mg/dL Urine Occult Blood (NEGATIVE) Urine Nitrite (NEGATIVE) Urine Bilirubin (NEGATIVE) Urine Urobilinogen (NORMAL) E.U./dL Ur Leukocyte Esterase (NEGATIVE) Urine RBC (0-5) /HPF Urine WBC (0-5) /HPF Ur Squamous Epith Cells (<= Few) Urine Bacteria (None Seen) /HPF Ur Microscopic Review Urine Culture Comments Blood Type Antibody Screen Crossmatch IS Only 06/12/23 06/12/23 06/12/23 Range/Units 02:50 01:42 01:42 WBC (4.8-10.8) x10^3/uL RBC (4.20-5.40) 10^6/uL Hgb (12.0-16.0) g/dL Hct (37.0-47.0) % MCV (81.0-99.0) fL MCH (27.0-31.0) pg MCHC (32.0-36.0) g/dL RDW (12.0-15.0) % Plt Count (130-450) 10^3/uL MPV (7.9-10.8) fL Neut # (Auto) (1.5-6.6) 10^3/uL Lymph # (Auto) (1.5-3.5) 10^3/uL [place] # (Auto) (0.0-1.0) 10^3/uL Eos # (Auto) (0.0-0.7) 10^3/uL Baso # (Auto) (0.0-0.1) 10^3/uL Absolute Nucleated RBC x10^3/uL Nucleated RBC % /100WBC Sodium (135-145) mmol/L Potassium (3.5-4.5) mmol/L Chloride (101-111) mmol/L Carbon Dioxide (21-32) mmol/L Anion Gap (6-13) BUN (6-20) mg/dL Creatinine (0.6-1.3) mg/dL Estimated GFR (MDRD) (>89) Glucose (74-104) mg/dL Calcium (8.5-10.3) mg/dL Total Bilirubin (0.2-1.0) mg/dL AST (10-42) IU/L ALT (10-60) IU/L Alkaline Phosphatase (42-121) IU/L Lactate Dehydrogenase 163 (140-271) IU/L Total Protein (6.4-8.9) g/dL Albumin (3.2-5.5) g/dL Globulin (2.1-4.2) g/dL Albumin/Globulin Ratio (1.0-2.2) Lipase (11-82) U/L Urine Color YELLOW Urine Clarity HAZY (CLEAR) Urine pH 6.5 (5.0-7.5) PH Ur Specific [place] <=1.005 (1.002-1.030) Urine Protein NEGATIVE (NEGATIVE) mg/dL Urine Glucose (UA) NEGATIVE (NEGATIVE) mg/dL Urine Ketones NEGATIVE (NEGATIVE) mg/dL Urine Occult Blood MODERATE H (NEGATIVE) Urine Nitrite NEGATIVE (NEGATIVE) Urine Bilirubin NEGATIVE (NEGATIVE) Urine Urobilinogen 0.2 (NORMAL) (NORMAL) E.U./dL Ur Leukocyte Esterase MODERATE H (NEGATIVE) Urine RBC 0-5 (0-5) /HPF Urine WBC 6-10 H (0-5) /HPF Ur Squamous Epith Cells FEW Squamous (<= Few) Urine Bacteria Few (None Seen) /HPF Ur Microscopic Review INDICATED Urine Culture Comments INDICATED Blood Type A POSITIVE Antibody Screen NEGATIVE Crossmatch IS Only See Detail 06/12/23 06/12/23 Range/Units 01:42 01:42 WBC 7.0 (4.8-10.8) x10^3/uL RBC 1.87 L (4.20-5.40) 10^6/uL Hgb 6.1 L* (12.0-16.0) g/dL Hct 17.8 L* (37.0-47.0) % MCV 95.2 (81.0-99.0) fL MCH 32.6 H (27.0-31.0) pg MCHC 34.3 (32.0-36.0) g/dL RDW 13.1 (12.0-15.0) % Plt Count 169 (130-450) 10^3/uL MPV 9.4 (7.9-10.8) fL Neut # (Auto) 4.3 (1.5-6.6) 10^3/uL Lymph # (Auto) 1.9 (1.5-3.5) 10^3/uL [place] # (Auto) 0.4 (0.0-1.0) 10^3/uL Eos # (Auto) 0.1 (0.0-0.7) 10^3/uL Baso # (Auto) 0.0 (0.0-0.1) 10^3/uL Absolute Nucleated RBC 0.07 x10^3/uL Nucleated RBC % 1.0 /100WBC Sodium 138 (135-145) mmol/L Potassium 3.9 (3.5-4.5) mmol/L Chloride 104 (101-111) mmol/L Carbon Dioxide 26 (21-32) mmol/L Anion Gap 8.0 (6-13) BUN 10 (6-20) mg/dL Creatinine 1.0 (0.6-1.3) mg/dL Estimated GFR (MDRD) 62 L (>89) Glucose 86 (74-104) mg/dL Calcium 8.8 (8.5-10.3) mg/dL Total Bilirubin 0.2 (0.2-1.0) mg/dL AST 43 H (10-42) IU/L ALT 50 (10-60) IU/L Alkaline Phosphatase 75 (42-121) IU/L Lactate Dehydrogenase (140-271) IU/L Total Protein 5.3 L (6.4-8.9) g/dL Albumin 2.9 L (3.2-5.5) g/dL Globulin 2.4 (2.1-4.2) g/dL Albumin/Globulin Ratio 1.2 (1.0-2.2) Lipase 22 (11-82) U/L Urine Color Urine Clarity (CLEAR) Urine pH (5.0-7.5) PH Ur Specific [place] (1.002-1.030) Urine Protein (NEGATIVE) mg/dL Urine Glucose (UA) (NEGATIVE) mg/dL Urine Ketones (NEGATIVE) mg/dL Urine Occult Blood (NEGATIVE) Urine Nitrite (NEGATIVE) Urine Bilirubin (NEGATIVE) Urine Urobilinogen (NORMAL) E.U./dL Ur Leukocyte Esterase (NEGATIVE) Urine RBC (0-5) /HPF Urine WBC (0-5) /HPF Ur Squamous Epith Cells (<= Few) Urine Bacteria (None Seen) /HPF Ur Microscopic Review Urine Culture Comments Blood Type Antibody Screen Crossmatch IS Only
[2023-06-13 02:00] VITALS: O2SAT 94
--- NOTE | 2023-06-13 05:38 | Discharge Plan ---
Discharge Plan Problem Reviewed?: Yes Disposition: Home, Self Care Condition: Good Diet: Regular Activity Restrictions: Additional Comments Shower Restrictions: No Instruction Topics: Preeclampsia No Smoking: If you smoke, Please STOP! Call for help. Follow-up with: Chana Crystal CNM, TRANSCRIPTIONIST [Primary Care Provider] - Nicholas Leija MD [Provider Admit Priv/Credential] -
--- NOTE | 2023-06-13 05:40 | DISCHARGE SUMMARY ---
Discharge Summary Admit Date: 06/12/23 Discharge Date: 06/13/23 Discharging Provider: Nicholas Leija MD Code Status: Attempt Resuscitation Condition at Discharge: Good Discharge Disposition: 01 Home, Self Care - DIAGNOSES Admission Diagnoses: Preeclampsia with severe features care of lactating mother Acute blood loss anemia Discharge Diagnoses with Status of Each Condition: Same: Stable - HPI History of Present Illness: Patient doing well today with no further elevations in blood pressure. Inter mittent headache, but resolved with caffeine and rest. Feels much more energy after transfusion and treatment of magnesium. No symptoms of worsening preeclampsia. Physical Exam Constitutional: alert, no acute distress, well hydrated, well developed, well nourished, appropriate dress. Cardiovascular: Regular rate and rhythm. Respiratory: no respiratory distress.Clear to auscultation bilaterally Psych: affect and mood appropriate, normal interaction, good eye contact. Extremities: Normal movement. No hyperreflexia. - HOSPITAL COURSE Hospital Course: Patient was admitted for severe range blood pressures for preeclampsia with severe features. She was started magnesium sulfate for 24 hours. After initial treatment, she had no sustained elevated blood pressures, but did have one severe range blood pressure that normalized on recheck. Has been ambulating around the room without issue. Has had good urine output. Swelling mildly improved, but still ongoing. Breast-feeding has improved while she was here. She also had acute blood loss anemia. Hemoglobin was 6.1 on arrival, she received 2 units of packed red blood cells and felt much better after treatment. Did receive an iron infusion for ongoing issues. She felt better and was discharged home in stable condition. Will follow-up in 1 week for blood pressure assessment. Call sooner if blood pressure is elevated at home to 160/110 as we may need to start at home blood pressure medication.. Should also follow-up with her primary cushion maker. - ALLERGIES Allergies/Adverse Reactions: Allergies Allergy/AdvReac Type Severity Reaction Status Date / Time No Known Drug Allergies Allergy Verified 06/12/23 01:16 - MEDICATIONS Home Medications: Ambulatory Orders Medication Instructions Recorded Confirmed Ferrous Sulfate [Feosol] 325 mg PO BID 06/06/23 06/12/23 Levothyroxine [Synthroid] 25 mcg PO DAILY 06/06/23 06/12/23 Pnv No.95/Ferrous Fum/Folic AC 1 tab PO DAILY 03/20/24 03/26/24 [ Tablet] Aspirin [[place] Aspirin] 81 mg PO DAILY 06/12/23 06/12/23 - LABS Result Diagrams: 06/12/23 20:19 06/12/23 12:36 - FOLLOW UP Follow Up: With Nicholas Leija MD in 1 week. Should also follow-up with CHERRY Rivero this week. - TIME SPENT Time Spent in Discharge (Minutes): 30
[2023-06-13 06:17] VITALS: BP 134/88
[2023-06-13 06:22] LABS: BASOPHILS % (AUTO) 0.1 %; EOSINOPHILS # (AUTO) 0.1 10^3/uL (0.0-0.7); EOSINOPHILS % (AUTO) 1.1 %; HCT - HEMATOCRIT 22.4 % (37.0-47.0); HGB - HEMOGLOBIN 7.7 g/dL (12.0-16.0); LYMPHOCYTES # (AUTO) 1.6 10^3/uL (1.5-3.5); LYMPHOCYTES % (AUTO) 20.2 %; MEAN CORPUSCULAR HEMOGLOBIN 31.7 pg (27.0-31.0); MEAN CORPUSCULAR HGB CONC 34.4 g/dL (32.0-36.0); MEAN CORPUSCULAR VOLUME 92.2 fL (81.0-99.0); MEAN PLATELET VOLUME 9.2 fL (7.9-10.8); MONOCYTES # (AUTO) 0.5 10^3/uL (0.0-1.0); MONOCYTES % (AUTO) 5.6 %; NEUTROPHILS # (AUTO) 5.5 10^3/uL (1.5-6.6); NEUTROPHILS % (AUTO) 68.4 %; NRBC ABSOLUTE COUNT (AUTO) 0.09 x10^3/uL; NUCLEATED RED BLOOD CELLS AUTO 1.1 /100WBC; PLT - PLATELET COUNT 201 10^3/uL (130-450); RED BLOOD COUNT 2.43 10^6/uL (4.20-5.40); RED CELL DISTRIBUTION WIDTH 15.1 % (12.0-15.0); WHITE BLOOD COUNT 8.1 x10^3/uL (4.8-10.8)
[2023-06-13 06:31] LABS: ALBUMIN 2.9 g/dL (3.2-5.5); ALBUMIN/GLOBULIN RATIO 1.2 (1.0-2.2); BILIRUBIN,TOTAL 0.4 mg/dL (0.2-1.0); CALCIUM 7.2 mg/dL (8.5-10.3); CREATININE 0.9 mg/dL (0.6-1.3); POTASSIUM 3.8 mmol/L (3.5-4.5); TOTAL PROTEIN 5.4 g/dL (6.4-8.9)
[2023-06-13] MEDS: IRON DEXTRAN 1,000 MG in SODIUM CHLORIDE 0.9% 250 ML IV ONE (08:50)
[2023-06-13] MEDS: LEVOTHYROXINE 25 MCG TABLET PO SCH (11:00)
--- NOTE | 2023-06-13 11:04 | Labor Flowsheet ---
Labor Flowsheet Datetime Report Generated by CPN: 06/13/2023 11:04 Datetime: 06/10/2023 07:24 VITAL SIGNS NBP Sys/Yoselin/Mean (mmHg): 117 : 73 : 83 Pulse: 92 Datetime: 06/08/2023 13:53 Stage of : Datetime: 06/08/2023 12:44 SpO2 (%): 100 Datetime: 06/08/2023 12:11 PATIENT CARE IV/Blood Work: IV Started Datetime: 06/08/2023 11:54 LaborFlag: Labor Datetime: 06/08/2023 11:53 Frequency (min): 2-3 Duration (sec): 60-90 ASSESSMENT A Monitor Mode: External US FHR Baseline Rate : 155 Variability: Minimal - Undetectable to <=5 bpm Accelerations: None Decelerations: Variable; Prolonged Category: Category II Datetime: 06/08/2023 11:37 Pushing Progress: Descent with Pushing; Pushing Effectively with Contractions Datetime: 06/08/2023 11:29 Patient Care Comments: Shetty removed 130mL of urine Datetime: 06/08/2023 11:24 VAGINAL EXAM Dilatation (cm): 10.0 Effacement (%): 100 Exam by: A.Bonilla,CNM Datetime: 06/08/2023 11:14 Temperature (C): 37.1 Datetime: 06/08/2023 11:02 STAGE 2 Pushing: Coached on Pushing Pushing Position: Pushing with Contractions Stage 2 Comments: Pt begins pushing with A.Bonilla,CNM Datetime: 06/08/2023 10:54 Station: -1 Datetime: 06/08/2023 10:51 COMMUNICATION Communication: Provider at Bedside Provider Notified (Name): A. Bonilla Datetime: 06/08/2023 10:45 Comments: tracing MHR @ times Datetime: 06/08/2023 10:30 [place] Units (mmHg): 95 MEDICATIONS Pitocin (milliunits): Increased to @ 24 Datetime: 06/08/2023 09:45 Medication Comments: Chana Bonilla updated Datetime: 06/08/2023 09:15 Resting Tone IUP (mmHg): 25 Intensity IUP (mmHg): 45-85 Datetime: 06/08/2023 09:03 Patient Position/Activity: Left Extreme Datetime: 06/08/2023 08:15 UTERINE ACTIVITY Monitor Mode: Internal Quality: Strong Pattern: Normal: <= 5 Contractions in 10 Minutes Resting Tone (Palpate): Relaxed Datetime: 06/08/2023 07:30 Contraction Comments: IUPC not working; replaced Datetime: 06/08/2023 07:27 Monitor Interventions for UA: IUPC Inserted Actions for Decelerations: Other Cervix, Consistency: Firm Cervix, Position: Midposition Datetime: 06/08/2023 06:30 Analgesics/Sedatives: Tylenol (mg) @ 1000 Datetime: 06/08/2023 05:36 Epidural Procedure Other: Redose Datetime: 06/08/2023 05:30 Antibiotics: Ampicillin IV 1 Gm Antiemetics/Antacids: Other Antiemetic/Antacid @ Benadryl 50mg Datetime: 06/08/2023 05:19 Anesthesia Comments: Request to have evaluate Datetime: 06/08/2023 04:46 Pain Presence: Constant Pain Type: Sharp Pain Assessment Comments: Left sciatic Datetime: 06/08/2023 04:30 Pitocin Checklist: At Least 1 Acceleration of 15 bpm x 15 Seconds in 30 Minutes or Adequate Variabi lity; No More than 1 Late Deceleration Occurred in Past 30 Minutes; No More than 2 Variable Decelerat ions > 60 Seconds in Duration and decreasing >60 bpm in 30 minutes; No More than 5 Uterine Contractio ns in 10 Minutes for any 20 Minute Interval; Uterus Palpates Soft between Contractions; IUPC Resting Tone less than 25 mmHg Datetime: 06/08/2023 03:58 Temperature Route: Oral Datetime: 06/08/2023 00:58 Vaginal Bleeding: Scant Datetime: 06/08/2023 00:40 Communication Comments: messaged to request to come for IUPC placement. Datetime: 06/08/2023 00:30 Monitor Interventions for FHR: Ultrasound Adjusted Datetime: 06/07/2023 23:45 Notification Reason: Status Update; Uterine Activity Datetime: 06/07/2023 19:30 FHR Baseline Changes: No Baseline Change Datetime: 06/07/2023 17:56 Pain Location: Back Pain Coping: Breathing Through Contractions Comfort Measures: Breathing/Relaxation Datetime: 06/07/2023 16:53 Vaginal Exam Comments: cervical edema Datetime: 06/07/2023 16:15 PAIN Pain Scale: 2 Datetime: 06/07/2023 13:00 Respirations: 15 Datetime: 06/07/2023 08:45 Vital Sign Comments: Arm bent, will calm patient, straighten arm and repeat. Datetime: 06/07/2023 06:25 Anesthesia Level Check: T11 Datetime: 06/07/2023 05:25 Strip Reviewed by: [email or web address] Datetime: 06/07/2023 03:58 I/O Interventions: Clear Liquids Given Datetime: 06/07/2023 03:14 Amniotic Fluid Color: Clear Amniotic Fluid Amount: Moderate Hygiene: Underpad Changed; Peripad Changed Datetime: 06/06/2023 23:46 Consults: Anesthesia Datetime: 06/06/2023 23:39 Amniotic Fluid Odor: Normal Datetime: 06/06/2023 22:57 Magnesium/Antihypertensives: Ephedrine IV (mg) @ 5 Datetime: 06/06/2023 21:56 Membranes Ruptured Date/Time: 06/06/2023 20:43 Datetime: 06/06/2023 21:11 Epidural Procedure: Loading Dose Datetime: 06/06/2023 21:02 ANESTHESIA Epidural Positioning: Sitting Datetime: 06/06/2023 21:00 PROCEDURE TIME OUT Procedure Verify: Accurate Procedure Consent Form Datetime: 06/06/2023 20:43 Membrane Status: Ruptured Membranes Rupture Method: Artificial Datetime: 06/06/2023 19:33 MATERNAL ASSESSMENT Level of Consciousness: Alert DTR's/Clonus: DTRs 1+ Headache: Denies Breath Sounds, Left: Clear and Equal Breath Sounds, Right: Clear and Equal Nausea/Vomiting: Denies RUQ Epigastric Pain: Denies TEACHING Instructional Method: Verbal Plan of Care: Plan of Care Discussed Datetime: 06/06/2023 13:07 Cervical Ripening Agents: Shetty Balloon; Cytotec @ Datetime: 06/05/2023 18:00 Pain Relief Measures: Comfort Measures
--- NOTE | 2023-06-13 17:52 | DISCHARGE SUMMARY ---
Discharge Summary Discharge Date: 06/13/23 Condition at Discharge: Good Discharge Disposition: 01 Home, Self Care - HOSPITAL COURSE Hospital Course: after patient arrived home, she called me with elevated bps. she is stressed, tired even after a nap. bp 161/1-02 and 147/109 on wrist cuff. discussed care. she feels very swollen. Plan: lasix 20 mg daily until swelling better. Nifedipine 10 mg short action and 30 mg long acting to pharmacy. when her got home with the meds, bp still elevated. patient will take lasix and 10 of nifepidine and call me back in 4 hours to let me know how she is doing. he also bought her a better bp cuff. 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 call me if any issues. - ALLERGIES Allergies/Adverse Reactions: Allergies Allergy/AdvReac Type Severity Reaction Status Date / Time No Known Drug Allergies Allergy Verified 06/12/23 01:16 - MEDICATIONS Home Medications: Ambulatory Orders Medication Instructions Recorded Confirmed Ferrous Sulfate [Feosol] 325 mg PO BID 06/06/23 06/12/23 Levothyroxine [Synthroid] 25 mcg PO DAILY 06/06/23 06/12/23 Pnv No.95/Ferrous Fum/Folic AC 1 tab PO DAILY 06/06/23 06/12/23 [ Tablet] Aspirin [[place] Aspirin] 81 mg PO DAILY 06/12/23 06/12/23 Furosemide [Lasix] 20 mg PO DAILY #6 tablet 06/13/23 NIFEdipine [Nifedipine ER] 30 mg PO DAILY #30 tab 06/13/23 NIFEdipine [Procardia] 10 mg PO ONCE PRN #60 cap 06/13/23 - LABS Result Diagrams: 06/13/23 06:09 06/13/23 06:09
== END 2023-06-13 11:03 | disposition home or self-care (01) ==
LOC: ED 01:11 → FBP 02:50
PROVIDERS: ADMIT Obstetrics & Gynecology; ATTEND Obstetrics & Gynecology
DX: O14.15 Severe pre-eclampsia, complicating the puerperium (principal); O90.81 Anemia of the puerperium; D62 Acute posthemorrhagic anemia; O99.285 Endocrine, nutritional and metabolic diseases complicating the puerperium; E03.9 Hypothyroidism, unspecified; Z79.890 Hormone replacement therapy
CPT/HCPCS: 36415; 36430; 80053; 81001; 83615; 83690; 85014; 85018; 85025; 86850; 86900; 86901; 86920; 87086; 96365; 96366; 96367; 96375; 99285; 99291; A9270; G0378; J1750; J7120; P9016; 81003; J3475

== ENCOUNTER 2023-06-15 15:05 | Outpatient (CLI) | payer BC ==
[2023-06-15 15:22] LABS: BASOPHILS % (AUTO) 0.5 %; EOSINOPHILS % (AUTO) 1.3 %; HCT - HEMATOCRIT 28.1 % (37.0-47.0); HGB - HEMOGLOBIN 9.3 g/dL (12.0-16.0); LYMPHOCYTES % (AUTO) 22.9 %; MEAN CORPUSCULAR HEMOGLOBIN 30.9 pg (27.0-31.0); MEAN CORPUSCULAR HGB CONC 33.1 g/dL (32.0-36.0); MEAN CORPUSCULAR VOLUME 93.4 fL (81.0-99.0); MEAN PLATELET VOLUME 8.8 fL (7.9-10.8); MONOCYTES % (AUTO) 6.7 %; NEUTROPHILS % (AUTO) 61.6 %; PLT - PLATELET COUNT 319 10^3/uL (130-450); RED BLOOD COUNT 3.01 10^6/uL (4.20-5.40); RED CELL DISTRIBUTION WIDTH 14.2 % (12.0-15.0); WHITE BLOOD COUNT 9.2 x10^3/uL (4.8-10.8)
[2023-06-15 15:26] LABS: ABNORMAL LYMPHS % (MANUAL) 0 %
[2023-06-15 15:39] LABS: ALBUMIN 3.4 g/dL (3.2-5.5); ALBUMIN/GLOBULIN RATIO 1.2 (1.0-2.2); BILIRUBIN,TOTAL 0.4 mg/dL (0.2-1.0); CALCIUM 9.7 mg/dL (8.5-10.3); POTASSIUM 4.3 mmol/L (3.5-4.5); TOTAL PROTEIN 6.3 g/dL (6.4-8.9)
[2023-06-15 16:43] LABS: BAND NEUTROPHILS % (MANUAL) 3 %; LYMPHOCYTES # (MANUAL) 2.2 10^3/uL (1.5-3.5); LYMPHOCYTES % (MANUAL) 20 %; METAMYELOCYTES % (MANUAL) 1 %; MONOCYTES # (MANUAL) 0.2 10^3/uL (0.0-1.0); MYELOCYTES % (MANUAL) 3 %; NEUTROPHILS # (MANUAL) 6.4 10^3/uL (1.5-6.6); RBC MORPHOLOGY (MULTIPLE) 1+ POLYCHROMASIA (NORMAL); REACTIVE LYMPHS % (MANUAL) 4 %
[2023-06-15 16:44] LABS: DIFFERENTIAL COMMENT MANUAL DIFFERENTIAL; PLATELET ESTIMATE, MANUAL NORMAL (130-450,000) (NORMAL); PLATELET MORPHOLOGY NORMAL APPEARANCE (NORMAL)
== END 2023-06-15 15:06 | disposition home or self-care (01) ==
LOC: LAB 15:05
PROVIDERS: ATTEND Nurse Practitioner Obstetrics & Gynecology
DX: O14.90 Unspecified pre-eclampsia, unspecified trimester (principal); O90.81 Anemia of the puerperium
CPT/HCPCS: 36415; 80053; 85025

== ENCOUNTER 2023-08-01 15:03 | Outpatient (CLI) | payer BC ==
[2023-08-01 15:17] LABS: BASOPHILS % (AUTO) 0.5 %; EOSINOPHILS # (AUTO) 0.2 10^3/uL (0.0-0.7); EOSINOPHILS % (AUTO) 3.7 %; HCT - HEMATOCRIT 37.6 % (37.0-47.0); HGB - HEMOGLOBIN 12.2 g/dL (12.0-16.0); LYMPHOCYTES # (AUTO) 2.9 10^3/uL (1.5-3.5); LYMPHOCYTES % (AUTO) 47.9 %; MEAN CORPUSCULAR HEMOGLOBIN 29.3 pg (27.0-31.0); MEAN CORPUSCULAR HGB CONC 32.4 g/dL (32.0-36.0); MEAN CORPUSCULAR VOLUME 90.4 fL (81.0-99.0); MEAN PLATELET VOLUME 9.8 fL (7.9-10.8); MONOCYTES # (AUTO) 0.4 10^3/uL (0.0-1.0); NEUTROPHILS # (AUTO) 2.5 10^3/uL (1.5-6.6); NEUTROPHILS % (AUTO) 41.6 %; PLT - PLATELET COUNT 215 10^3/uL (130-450); RED BLOOD COUNT 4.16 10^6/uL (4.20-5.40); RED CELL DISTRIBUTION WIDTH 12.8 % (12.0-15.0)
== END 2023-08-01 15:04 | disposition home or self-care (01) ==
LOC: LAB 15:03
PROVIDERS: ATTEND Physician Assistant Medical
DX: D64.9 Anemia, unspecified (principal)
CPT/HCPCS: 36415; 82728; 85025

== ENCOUNTER 2023-09-11 12:44 | Outpatient (CLI) | payer BC ==
[2023-09-11 12:56] LABS: BASOPHILS % (AUTO) 0.6 %; EOSINOPHILS # (AUTO) 0.2 10^3/uL (0.0-0.7); EOSINOPHILS % (AUTO) 3.3 %; HCT - HEMATOCRIT 39.6 % (37.0-47.0); LYMPHOCYTES # (AUTO) 3.3 10^3/uL (1.5-3.5); LYMPHOCYTES % (AUTO) 49.4 %; MEAN CORPUSCULAR HEMOGLOBIN 29.3 pg (27.0-31.0); MEAN CORPUSCULAR HGB CONC 32.8 g/dL (32.0-36.0); MEAN CORPUSCULAR VOLUME 89.2 fL (81.0-99.0); MEAN PLATELET VOLUME 9.9 fL (7.9-10.8); MONOCYTES # (AUTO) 0.4 10^3/uL (0.0-1.0); MONOCYTES % (AUTO) 6.5 %; NEUTROPHILS # (AUTO) 2.6 10^3/uL (1.5-6.6); PLT - PLATELET COUNT 209 10^3/uL (130-450); RED BLOOD COUNT 4.44 10^6/uL (4.20-5.40); RED CELL DISTRIBUTION WIDTH 12.5 % (12.0-15.0); WHITE BLOOD COUNT 6.6 x10^3/uL (4.8-10.8)
== END 2023-09-11 12:45 | disposition home or self-care (01) ==
LOC: LAB 12:44
PROVIDERS: ATTEND Physician Assistant Medical
DX: D64.9 Anemia, unspecified (principal)
CPT/HCPCS: 36415; 82306; 82607; 82746; 85025

== ENCOUNTER 2023-09-25 08:19 | Outpatient (CLI) | payer BC ==
[2023-09-25 08:59] LABS: THYROID STIMULATING HORMONE 1.79 uIU/mL (0.34-5.60)
== END 2023-09-25 08:20 | disposition home or self-care (01) ==
LOC: LAB 08:19
PROVIDERS: ATTEND Nurse Practitioner Obstetrics & Gynecology
DX: E03.9 Hypothyroidism, unspecified (principal)
CPT/HCPCS: 36415; 84439; 84443